=== PATIENT | male | born 1980 | race Caucasian/White ===

== ENCOUNTER 2017-12-31 17:09 | Inpatient (IN) ==
--- NOTE | 2017-12-31 17:30 | Emergency Department Note ---
Disposition Clinical Impression: Elevated transaminase level, Elevated troponin Pneumonia Qualifiers: Pneumonia type: due to unspecified organism Laterality: left Lung location: lower lobe of lung Qualified Code(s): J18.1 - Lobar pneumonia, unspecified organism Sepsis Qualifiers: Sepsis type: sepsis due to unspecified organism Qualified Code(s): A41.9 - Sepsis, unspecified organism Disposition: Admitted As Inpatient Condition: Good Time of Disposition: 20:56 General Adult HPI - General Chief complaint: ED General Medical Stated complaint: head, neck pain Time Seen by Provider: 12/31/17 17:16 Source: EMS Mode of arrival: EMS Limitations: no limitations Nursing Notes Reviewed: Yes Vital Signs Reviewed: Yes - History of Present Illness HPI Narrative: Male patient sitting complaints from complaining of a one-week history of myalgias as well as just not feeling well. States he has had a fever high temp of 103 at home. Has been treating it with Tylenol and Motrin. Developed a abscess to the right frontal aspect of his head that he thought was a pimple. Was seen at his physician's office after he got larger. Was placed on Bactrim as well as mupirocin ointment. Dates that they did not want to drain it secondary to scarring. At home he was able to get drainage out of it on Sunday. States that it did get larger at that time. Since then he has developed a cough. Congestion. Denies any chest pain. Reports pain in his right frontal area as well as the right occipital region of his head. Reports a cough that is productive. Denies any IV drug use. Denies any drug use at all. No urinary symptoms. Denies any nausea or vomiting. Does report that he just does not feel like he wants to eat. He reports he is otherwise healthy. Patient is tachycardic and tachypneic. Does have a cough whenever you ask him to take a deep breath. Is febrile while here. We will give patient a 30 kg fluid bolus start him on vancomycin as I believe that initially fever is due to the tissue infection to his right frontal aspect of his head. Patient does not appear meningitic. He does not have any photophobia or phonophobia. He is able to move his neck in all directions. Does report occipital pain but no midline tenderness. Pain Scale: 10 - Related Data Allergies Allergy/AdvReac Type Severity Reaction Status Date / Time No Known Allergies Allergy Verified 12/31/17 17:52 All systems ED: reviewed and negative except as stated. Review of Systems: As Per HPI Constitutional: Reports: fever, chills Cardiovascular: Denies: chest pain, palpitations, syncope Respiratory: Reports: cough, dyspnea, sputum production Gastrointestinal: Denies: abdominal pain, nausea, vomiting, diarrhea Genitourinary: Denies: urgency, dysuria, frequency Musculoskeletal: Reports: myalgia, other (Pain to the right occipital region. Not midline. No cervical spine tenderness.). Denies: back pain, neck pain Integumentary: Reports: lesions (2 frontal aspect of his head. Has been draining a purulent discharge.). Denies: rash Neurological: Reports: headache. Denies: weakness, numbness, paresthesias Past Medical History - Past Medical History Attestation: Yes The following information was validated with the patient. Source: patient Medical history: Reports: no medical history Psychiatric history: Reports: no psych history - Social History Smoking Status: Never smoker Alcohol use: Reports: none Drug use: Reports: none Physical Exam - General Limitations: no limitations General appearance: alert, in no apparent distress - Head Head exam: atraumatic, normocephalic, normal inspection, other (Small area around 2 mm and circular fashion to the right frontal aspect of his head with purulent discharge. Cleaned no culture was able to be obtained as it started bleeding and there is no more discharge.) - Eye Eye exam: Present: normal appearance, PERRL, EOMI. Absent: scleral icterus, conjunctival injection, periorbital tenderness - ENT ENT exam: normal exam, normal oropharynx, mucous membranes moist, TM's normal bilaterally - Neck Neck exam: Present: normal inspection, full ROM, trachea midline, other (Mildly erythematous and enlarged tonsils. No exudates.) - Chest Chest inspection: Present: normal inspection, symmetric chest wall rise - Respiratory Respiratory exam: Present: other (Decreased in the lower lobes.). Absent: respiratory distress, wheezes, accessory muscle use, prolonged expiratory phase - Cardiovascular Cardiovascular exam: Present: normal rhythm, tachycardia, normal heart sounds - Abdominal Exam Abdominal exam: Present: soft, Non-Tender. Absent: tenderness, distention, guarding, rebound, rigidity, Marion's sign, Rovsing's sign, tenderness at McBurney's Point - Extremities Exam Extremities exam: Present: normal inspection, full ROM, normal capillary refill. Absent: tenderness, pedal edema, calf tenderness - Back Exam Back exam: Absent: tenderness (No cervical spine or thoracic spine tenderness.) - Neurological Exam Neurological exam: Present: alert, oriented X3 - Psychiatric Psychiatric exam: Present: normal affect, normal mood - Skin Skin exam: Present: warm, dry, intact, normal color. Absent: rash, cyanosis Course Course Narrative: Patient well-appearing on exam. He does report myalgias everywhere. He is febrile. Responded well to fluid bolus. Lactic acid is normal. We did place patient on vancomycin his initial presentation was concerning for his tissue infection to cause possible sepsis. However after checks x-ray was obtained he does have a pneumonia. We will add Zosyn on at this time. Patient's lung exam was inhibited by patient significant amount of coughing. If you asked to take a deep breath he did begin to cough. Abdomen is soft and nontender. No organomegaly on exam. No pain to palpation of his abdomen. No nausea or vomiting. Does have elevated liver enzymes. Again reports no medical history. We will add a hepatitis panel. Patient also reports no drug use. There is no murmurs on exam. No swelling or edema to his extremities. We will admit patient to the hospital for possible sepsis. Vital Signs Temperature 101.1 F H 12/31/17 17:13 Pulse Rate 108 12/31/17 17:13 Respiratory Rate 20 12/31/17 17:13 Blood Pressure 142/92 12/31/17 17:13 O2 Sat by Pulse Oximetry 97 12/31/17 17:13 Temperature 99.6 F 12/31/17 20:26 Pulse Rate 91 12/31/17 20:26 Respiratory Rate 20 12/31/17 17:13 Blood Pressure 126/84 12/31/17 20:26 O2 Sat by Pulse Oximetry 95 12/31/17 20:26 Oxygen Delivery Oxygen Delivery Room Air Medical Decision Making - Medical Records Medical records reviewed: Yes I reviewed the patient's medical records. - Lab Data Lab results reviewed: Yes I reviewed the patient's lab results. Result diagrams: 12/31/17 18:09 12/31/17 18:09 Lab Results 12/31/17 12/31/17 12/31/17 Range/Units 17:49 18:09 18:09 WBC 10.0 (4.3-11.1) K/mcL RBC 5.07 (4.19-5.50) M/mcL Hgb 15.2 (12.9-16.9) g/dL Hct 42.8 (37.5-50.1) % MCV 84.4 (83.0-100.0) fL MCH 30.0 (28.0-33.3) pg MCHC 35.5 (31.6-35.5) g/dL RDW 12.6 (11.5-14.5) % Plt Count 168 (140-400) K/mcL MPV 9.2 L (9.4-12.4) fL Immature Gran % 0.2 (0-4) % Seg Neutrophils % 83.3 % Lymphocytes % 5.2 % Monocytes % 10.2 % Eosinophils % 0.9 % Basophils % 0.2 % Neutrophils # 8.3 (1.6-8.9) K/mcL Lymphocytes # 0.5 L (0.6-4.6) K/mcL Monocytes # 1.0 (0.0-1.3) K/mcL Eosinophils # 0.1 (0.0-0.6) K/mcL Basophils # 0.0 (0.0-0.2) K/mcL PT 15.9 H (9.4-12.1) Seconds INR 1.4 APTT 33.7 (26.0-36.0) Seconds Sodium (136-145) mEq/L Potassium (3.5-5.1) mEq/L Chloride (98-107) mEq/L Carbon Dioxide (23-29) mEq/L BUN (6-20) mg/dL Creatinine (0.70-1.30) mg/dL Est GFR ( Amer) (> 60) Est GFR (Non-Af Amer) (> 60) BUN/Creatinine Ratio (6-26) Glucose (70-105) mg/dL Calculated Osmolality (280-300) Lactic Acid (0.5-2.2) mmol/L Calcium (8.6-10.3) mg/dL Phosphorus (2.7-4.5) mg/dL Magnesium (1.6-2.6) mg/dL Total Bilirubin (0.3-1.0) mg/dL Direct Bilirubin (0.0-0.2) mg/dL Indirect Bilirubin (0.0-1.2) mg/dL AST (13-39) Units/L ALT (7-52) Units/L Alkaline Phosphatase (34-104) Units/L Creatine Kinase (30-223) Units/L Troponin I (< 0.04) ng/mL Serum Total Protein (6.4-8.9) g/dL Albumin (3.5-5.7) g/dL Globulin (2.4-3.5) g/dL Albumin/Globulin Ratio (1.1-2.2) Urine Color Dark Yellow (Yellow) Urine Clarity Clear (Clear) Urine pH 6.0 (5.0-8.0) pH Units Ur Specific [place] 1.021 (1.010-1.025) Urine Protein 100 H (Neg-Trace) mg/dL Urine Glucose (UA) Normal (Normal) mg/dL Urine Ketones 40 H (Negative) mg/dL Urine Blood Negative (Negative) Urine Nitrite Negative (Negative) Urine Bilirubin Moderate H (Negative) Urine Urobilinogen Normal (Normal) mg/dL Ur Leukocyte Esterase Trace H (Negative) Urine Microscopic RBC 0-3 (0-3) per hpf Urine Microscopic WBC 3-5 H (0-3) per hpf Ur Squamous Epith Cells Moderate H (None-Few) per lpf Urine Bacteria None Seen (None-Few) per hpf Hyaline Casts None Seen (None-Few) per lpf Ur Culture Indicated? YES A (NO) 12/31/17 12/31/17 Range/Units 18:09 18:09 WBC (4.3-11.1) K/mcL RBC (4.19-5.50) M/mcL Hgb (12.9-16.9) g/dL Hct (37.5-50.1) % MCV (83.0-100.0) fL MCH (28.0-33.3) pg MCHC (31.6-35.5) g/dL RDW (11.5-14.5) % Plt Count (140-400) K/mcL MPV (9.4-12.4) fL Immature Gran % (0-4) % Seg Neutrophils % % Lymphocytes % % Monocytes % % Eosinophils % % Basophils % % Neutrophils # (1.6-8.9) K/mcL Lymphocytes # (0.6-4.6) K/mcL Monocytes # (0.0-1.3) K/mcL Eosinophils # (0.0-0.6) K/mcL Basophils # (0.0-0.2) K/mcL PT (9.4-12.1) Seconds INR APTT (26.0-36.0) Seconds Sodium 135 L (136-145) mEq/L Potassium 3.9 (3.5-5.1) mEq/L Chloride 103 (98-107) mEq/L Carbon Dioxide 19 L (23-29) mEq/L BUN 9 (6-20) mg/dL Creatinine 1.10 (0.70-1.30) mg/dL Est GFR ( Amer) > 60 (> 60) Est GFR (Non-Af Amer) > 60 (> 60) BUN/Creatinine Ratio 8 (6-26) Glucose 118 H (70-105) mg/dL Calculated Osmolality 280 (280-300) Lactic Acid 0.7 (0.5-2.2) mmol/L Calcium 8.7 (8.6-10.3) mg/dL Phosphorus 2.0 L (2.7-4.5) mg/dL Magnesium 1.7 (1.6-2.6) mg/dL Total Bilirubin 1.7 H (0.3-1.0) mg/dL Direct Bilirubin 0.8 H (0.0-0.2) mg/dL Indirect Bilirubin 0.9 (0.0-1.2) mg/dL AST 101 H (13-39) Units/L ALT 124 H (7-52) Units/L Alkaline Phosphatase 140 H (34-104) Units/L Creatine Kinase 51 (30-223) Units/L Troponin I 0.04 H* (< 0.04) ng/mL Serum Total Protein 7.1 (6.4-8.9) g/dL Albumin 4.1 (3.5-5.7) g/dL Globulin 3.0 (2.4-3.5) g/dL Albumin/Globulin Ratio 1.4 (1.1-2.2) Urine Color (Yellow) Urine Clarity (Clear) Urine pH (5.0-8.0) pH Units Ur Specific [place] (1.010-1.025) Urine Protein (Neg-Trace) mg/dL Urine Glucose (UA) (Normal) mg/dL Urine Ketones (Negative) mg/dL Urine Blood (Negative) Urine Nitrite (Negative) Urine Bilirubin (Negative) Urine Urobilinogen (Normal) mg/dL Ur Leukocyte Esterase (Negative) Urine Microscopic RBC (0-3) per hpf Urine Microscopic WBC (0-3) per hpf Ur Squamous Epith Cells (None-Few) per lpf Urine Bacteria (None-Few) per hpf Hyaline Casts (None-Few) per lpf Ur Culture Indicated? (NO) - Radiology Data Radiology results reviewed: Yes I reviewed the patient's radiology results. Chest X-Ray 12/31/17 17:31 IMPRESSION: Possible left lower lobe pneumonia D/ / Giovanny Yeboah MD / Giovanny Yeboah MD Interpreting Provider: Giovanny Yeboah MD - EKG Data EKG #1 EKG attestation: Yes I reviewed and interpreted this EKG. EKG results narrative: Sinus tachycardia at a rate of 105. OH interval is 123. Castration is 91. QTC is 411. QT is 311. No signs of acute ischemia. No previous EKG to compare to. Patient does have T-wave inversions in lead 3. Attestation Statement - Attestation Attestation: I examined this patient and my medical decision-making was reviewed with the Resident Physician, Dr. Mitchell. I agree with the documented findings, disposition and treatment plan as described except to the extent set forth below. Patient is a 37-year-old white male who presents the emergency department complaints of a one-week history of myalgias "not feeling well. Patient states he developed a temperature with a MAXIMUM TEMPERATURE of 103 and developed a pimple that progressed to a small 1 cm abscess on his forehead. Patient was seen for this and started on Bactrim and mupirocin that he has been taking as directed and was able to express some very limited serial from the area on Sunday. He does not feel this is getting worse but has not been feeling well having decreased appetite associated with congestion and cough. She is otherwise healthy denies any other medical history. I agree with patient's physical exam findings as documented. On arrival he is febrile and tachycardic meetings Sirs criteria. Patient was placed on a monitor and IV is established given fluid boluses labs including lactate were obtained as well as chest x-ray and cultures. An. Antibiotics were initiated. Patient's lactate is within normal limits, but he does have an elevated troponin as well as elevated bilirubin and liver transaminases. Patient has denied any abdominal pain or chest pain. Patient's chest x-ray is consistent with a left lower lobe infiltrate for which we started IV antibiotics. Patient denies any history of IV drug abuse but does have numerous tattoos. Patient's troponin also came back elevated EKG shows a sinus tachycardia without acute ischemia. Concerning for possible endocarditis. We did add antibiotic coverage for this and additional blood cultures. Patient has been hemodynamically stable throughout his ED course we will admit him to the hospitalist service discussed with hospitalist who accepted patient for admission.
[2017-12-31] MEDS ORDERED: 0.9 % Sodium Chloride 500 ML IVC ONE (17:34)
[2017-12-31 17:57] LABS: Bilirubin,Urine Moderate (Negative); Blood,Urine Negative (Negative); Clarity,Urine Clear (Clear); Color,Urine Dark Yellow (Yellow); Glucose,Urine (UA) Normal (Normal); Ketones,Urine 40 mg/dL (Negative); Leukocyte Esterase,Urine Trace (Negative); Nitrite,Urine Negative (Negative); Protein,Urine 100 mg/dL (Neg-Trace); Specific Gravity,Urine 1.021 (1.010-1.025); Urobilinogen,Urine Normal (Normal)
[2017-12-31 18:00] LABS: Bacteria,Urine None Seen per hpf (None-Few); Hyaline Casts,Urine None Seen per lpf (None-Few); RBC,Urine 0-3 per hpf (0-3); Squamous Epithelial Cell,Urine Moderate per lpf (None-Few)
[2017-12-31] MEDS: 0.9 % Sodium Chloride 1,000 ML IVC SCH ×2 (18:15→20:25)
[2017-12-31 18:25] LABS: Basophils % 0.2 %; Eosinophils # 0.1 K/mcL (0.0-0.6); Eosinophils % 0.9 %; Hematocrit 42.8 % (37.5-50.1); Hemoglobin 15.2 g/dL (12.9-16.9); Immature Granulocytes % 0.2 % (0-4); Lymphocytes # 0.5 K/mcL (0.6-4.6); Lymphocytes % 5.2 %; Mean Corpuscular HGB Conc 35.5 g/dL (31.6-35.5); Mean Corpuscular Volume 84.4 fL (83.0-100.0); Mean Platelet Volume 9.2 fL (9.4-12.4); Monocytes % 10.2 %; Neutrophils # 8.3 K/mcL (1.6-8.9); Platelet Count 168 K/mcL (140-400); Red Blood Count 5.07 M/mcL (4.19-5.50); Red Cell Distribution Width 12.6 % (11.5-14.5); Segmented Neutrophils % 83.3 %
[2017-12-31 18:29] LABS: INR 1.4; Prothrombin Time 15.9 Seconds (9.4-12.1)
[2017-12-31 18:32] LABS: Activated Partial Thrombo Time 33.7 Seconds (26.0-36.0)
[2017-12-31 18:47] LABS: Alanine Aminotransferase 124 Units/L (7-52); Albumin 4.1 g/dL (3.5-5.7); Albumin/Globulin Ratio 1.4 (1.1-2.2); Alkaline Phosphatase 140 Units/L (34-104); Aspartate Amino Transferase 101 Units/L (13-39); BUN/Creatinine Ratio 8 (6-26); Bilirubin,Direct 0.8 mg/dL (0.0-0.2); Bilirubin,Indirect 0.9 mg/dL (0.0-1.2); Bilirubin,Total 1.7 mg/dL (0.3-1.0); Blood Urea Nitrogen 9 mg/dL (6-20); Calcium 8.7 mg/dL (8.6-10.3); Carbon Dioxide 19 mEq/L (23-29); Chloride 103 mEq/L (98-107); Glucose 118 mg/dL (70-105); Magnesium 1.7 mg/dL (1.6-2.6); Osmolality,Calculated 280 (280-300); Potassium 3.9 mEq/L (3.5-5.1); Sodium 135 mEq/L (136-145); Total Protein 7.1 g/dL (6.4-8.9); eGFR For Non-African Americans > 60 (> 60)
[2017-12-31 19:01] LABS: Troponin I 0.04 ng/mL (< 0.04)
[2017-12-31 20:08] LABS: Creatine Kinase 51 Units/L (30-223)
[2017-12-31] MEDS ORDERED: Piperacillin/Tazobactam 3.375 GM in 0.9 % Sodium Chloride Mini Bag 100 ML IVPB ONE (20:30)
[2017-12-31] MEDS ORDERED: Acetaminophen 325 MG TABLET PO PRN (21:32)
[2017-12-31] MEDS ORDERED: Naloxone 0.4 MG/ML INJ IVP PRN (21:32)
--- NOTE | 2017-12-31 21:54 | Internal Med History&Physical ---
<Amanda Bell - Last Filed: 12/31/17 23:53> Date of Encounter: 12/31/17 Time of Encounter: 21:38 Internal Medicine - H&P: HPI Chief complaint: fever & malaise Admitted From: Home Plans for Post Hospital Care: Home History of present illness: Mr. Lovelace is a 37 year old male presents to ED with 3 days of malaise, fever and head pain. One week ago noticed abscess on his forehead and it grew until pain caused him to go to Urgent Care on Sunday and was prescribed Bactrim. When he awoke on Sunday - abscess was larger so he picked at it. On same day , he started having neck pain and face swelled - " looked like a boxer". He had tender mass behind right ear and below jaw that has resolved. He felt like he could not completely stretch his neck or legs. Today, he had headache with photophobia improved with Tylenol . He reports shortness of breath and chest congestion with nonproductive cough. He has campy abdominal pain only occurs when he lays flat described similar to hunger . He has decrease appetite - denies nausea, vomiting or diarrhea. In ED, mild tachycardia at 108 and febrile 101.1 - given Tylenol and IVF. His chest x-ray showed possible left lower lobe infiltrate -started on van and zosyn for PNA. Lipase elevated at 562. He has no past medical history as an adult - but had meningitis as infant. He denies use of tobacco, EtOH, and illicit substances. He has had no recent travel , sick contacts, or odd foods. Past Med Surg Social Fam HX - Past Medical History Medical history: no medical history Psychiatric history: no psych history - Past Surgical History Additional surgical history: Skin graphs - Social History Smoking Status: Never smoker Alcohol use: none Drug use: none Internal Medicine - H&P: Meds 3 Allergy/AdvReac Type Severity Reaction Status Date / Time No Known Allergies Allergy Verified 12/31/17 17:52 All Systems PM: A 10-system review of systems was performed and is negative for pertinent findings except as documented above in the HPI. - Constitutional Constitutional: fatigue, fever(s), malaise - EENT Eyes: photophobia, no blurry vision, no change in vision Ears: no decreased hearing, no ear discharge Nose, mouth and throat: dry mouth, facial pain - Cardiovascular Cardiovascular ROS IM: no chest pain, no palpitations - Respiratory Respiratory: cough, dyspnea on exertion, chest congestion, no wheezing - Gastrointestinal Gastrointestinal: abdominal pain, no constipation, no diarrhea, no nausea, no vomiting - Genitourinary Genitourinary ROS male: no dysuria, no urinary incontinence, no urinary urgency - Musculoskeletal Musculoskeletal ROS IM: myalgias, neck pain, stiffness - Neurological Neurological ROS: headache(s), no behavioral changes, no confusion - Constitutional Vitals: Temp Pulse Resp BP Pulse Ox 99.6 F 91 20 126/84 95 12/31/17 20:26 12/31/17 20:26 12/31/17 17:13 12/31/17 20:26 12/31/17 20:26 General appearance: Present: cooperative, mild distress, A&O X 3, answers questions appropriately Exam: laying comfortable in bed - Head Head exam: Present: normocephalic. Absent: atraumatic Additional comments: ruptured abscess about 5 cm in diameter - Eye Eye exam: Present: EOMI, normal appearance. Absent: periorbital swelling, periorbital tenderness Pupils: Present: normal accommodation, PERRL - Respiratory Respiratory exam: Present: rales. Absent: respiratory distress, rhonchi, wheezes, tachypnea Additional comments: in lower lobes - Cardiovascular Cardiovascular exam: Present: RRR. Absent: gallop, rubs - GI/Abdominal GI/Abdominal exam: Present: hyperactive bowel sounds. Absent: mass, rebound, splenomegaly, tenderness - Extremities Exam Extremities exam: Present: full ROM, radial pulses palpable and symmetrical. Absent: pedal edema, tenderness - Back Exam Back exam: Present: full ROM, paraspinal tenderness, tenderness Additional comments: cervical spine was tender and tight - Neurological Exam Neurological exam: Present: altered, CN II-XII intact, motor sensory deficit, oriented X3, no focal deficits, strengths equal and symetr throughout. Absent: facial droop, speech deficit - Skin Skin exam: Present: diaphoretic, warm. Absent: excoriation, rash Additional comments: large number of tattoos all over body Internal Med - H&P Results - Labs CBC & Chem 7: 12/31/17 18:09 12/31/17 18:09 - Assessment and plan (1) Pancreatitis Current Visit: Yes Status: Suspected Assessment and plan: Non specific symptoms with Lipase 562 and elevated AST & ALTs - continue IVF to 2L - CT abdomen Qualifiers: Pancreatitis type: unspecified pancreatitis type Acute pancreatitis complication: unspecified Qualified Code(s): K85.90 - Acute pancreatitis without necrosis or infection, unspecified (2) Pneumonia Current Visit: Yes Status: Suspected Assessment and plan: Unlikely with lack of productive cough and unconvincing radiograph findings - stop vanc/ zosyn Qualifiers: Pneumonia type: due to unspecified organism Laterality: left Lung location: lower lobe of lung Qualified Code(s): J18.1 - Lobar pneumonia, unspecified organism (3) Sepsis Current Visit: Yes Status: Suspected Assessment and plan: Meets SIRs criteria with mild tachycardia 108 and fever 101.1 - but unclear source - superficial face abscess is possible but unlikely source Qualifiers: Sepsis type: sepsis due to unspecified organism Qualified Code(s): A41.9 - Sepsis, unspecified organism (4) Elevated troponin Current Visit: Yes Status: Suspected Assessment and plan: troponin 0.04 with out history concerning for ACS - trend troponin q 6hr - echo to rule out viral endocarditis (5) DVT prophylaxis Current Visit: Yes Status: Acute Assessment and plan: heparin sq - Time Spent With Patient Total time spent is greater than 50% in coordination of care (as documented) at patient's floor/unit and/or counseling patient: Greater than 35 minutes <Emilia Brizuela - Last Filed: 01/01/18 00:05> Date of Encounter: 01/01/18 Internal Medicine - H&P: HPI History of present illness: Mr. Lovelace is a 37 year old male All Systems PM: A 10-system review of systems was performed and is negative for pertinent findings except as documented above in the HPI. - Constitutional Vitals: Temp Pulse Resp BP Pulse Ox 99.3 F 100 14 116/76 98 12/31/17 23:45 12/31/17 23:45 12/31/17 23:45 12/31/17 23:45 12/31/17 23:45 Internal Med - H&P Results - Labs CBC & Chem 7: 12/31/17 18:09 12/31/17 18:09 - Time Spent With Patient Total time spent is greater than 50% in coordination of care (as documented) at patient's floor/unit and/or counseling patient: - Attending Attestation Patient seen and examined by me on 12/31/17 2200hrs. 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 He then developed now more recently some cramping mid-abdominal discomfort and some shortness of breath without productive cough or pleuritic pain. He also complains of diffuse aches in his legs. On arrival to our ER an I&D was done on the small abscess on his forehead. He was also febrile to 101.1F with mild tachycardia at 108. Labs were remarkable for a positive troponin and elevated lipase. Of note the patient states that he does not drink alcohol and does not smoke. HE denies chest pain but does feel his abdominal pain was worse when laying supine. On my assessment he was comfortable in bed in no acute distress and without complaints. Physical exam remarkable for a well-developed fellow with multiple tattoos, non-tender abdomen, no murmurs or rubs on cardiac auscultation and no wheezes, rales or rhonchi. No meningismus or photophobia. His CXR was independently reviewed by me and I do not see any focal consolidation to suggest pneumonia that would warrant systemic antibiotics. We will observe him overnight given the abnormal lab findings to which there is no specific cause we can pinpoint at this time. I am concerned about a viral syndrome which could perhaps cause a pericarditis state hence the positive troponin and upper abdominal discomfort that is relieved with supine positioning. For now we will place on fluids, cultures have been obtained, repeat troponin and lipase level in the morning, get imaging of his abdomen and check an echo to check for pericardial fluid.
[2017-12-31 22:52] LABS: Amphetamine Screen,Urine Negative ng/mL (Cutoff=1000); Barbiturate Screen,Urine Negative ng/mL (Cutoff=200); Benzodiazepines Screen,Urine Negative ng/mL (Cutoff=200); Cannabinoid Screen,Urine Negative ng/mL (Cutoff = 50); Cocaine Screen,Urine Negative ng/mL (Cutoff= 300); Opiate Screen,Urine Negative ng/mL (Cutoff=300); Phencyclidine Screen,Urine Negative ng/mL (Cutoff=25)
[2017-12-31] MEDS: Ringers Solution, Lactated 2,000 ML IVC SCH (23:44)
[2017-12-31] MEDS ORDERED: Albuterol 2.5 MG/3 ML NEBULIZER IH PRN (23:46)
[2017-12-31] MEDS ORDERED: Benzonatate 100 MG CAPSULE PO PRN (23:47)
[2018-01-01 02:10] LABS: Basophils % 0.2 %; Eosinophils # 0.1 K/mcL (0.0-0.6); Eosinophils % 1.3 %; Hemoglobin 13.6 g/dL (12.9-16.9); Immature Granulocytes % 0.2 % (0-4); Lymphocytes # 0.6 K/mcL (0.6-4.6); Lymphocytes % 6.5 %; Mean Corpuscular HGB Conc 34.9 g/dL (31.6-35.5); Mean Corpuscular Hemoglobin 29.8 pg (28.0-33.3); Mean Corpuscular Volume 85.3 fL (83.0-100.0); Mean Platelet Volume 10.5 fL (9.4-12.4); Monocytes # 0.8 K/mcL (0.0-1.3); Monocytes % 9.2 %; Neutrophils # 7.4 K/mcL (1.6-8.9); Platelet Count 139 K/mcL (140-400); Red Blood Count 4.57 M/mcL (4.19-5.50); Red Cell Distribution Width 12.8 % (11.5-14.5); Segmented Neutrophils % 82.6 %
[2018-01-01] MEDS: *HR* Heparin 5,000 UNIT/ML VIAL SQ SCH ×3 (04:56→21:40)
[2018-01-01] MEDS ORDERED: Ketorolac 30 MG/ML VIAL IVP ONE (05:06)
--- NOTE | 2018-01-01 05:14 | Event Note ---
Date of Encounter: 01/01/18 Time of Encounter: 05:10 The patient is seen to have a febrile recurrence with complaints of diffuse body aches and headache. He also says he has some congestion in his throat. His physical exam remains unremarkable however and there are no localizing symptoms. Will obtain another set of blood cultures x 2 sets, lactate level, repeat troponin, EKG and lipase (elevated but does not have abdominal findings) . TTE and CT already ordered. His symptoms and plethora of abnormal lab findings do not constitute one specific syndrome as of yet. Will start empiric antimicrobials: vancomycin and cefepime. Symptomatic relief of his congestion with nebulizer therapy. TTE ordered and cardiology evaluation can be sought subsequently. If he has ongoing headache and fever, a consult to neurology or IR should be requested for a lumbar puncture.
[2018-01-01] MEDS ORDERED: Acetaminophen 325 MG TABLET PO PRN (06:03)
[2018-01-01] MEDS ORDERED: *HR* HYDROcodone/Acet 5/325 mg TABLET PO PRN (06:03)
[2018-01-01] MEDS ORDERED: traMADol 50 MG TABLET PO PRN (06:03)
[2018-01-01] MEDS ORDERED: *HR* OxyCODONE Immed Rel 5 MG TABLET PO PRN (06:03)
[2018-01-01] MEDS: Cefepime HCl 2,000 MG in Water for inj. (sterile) 20 ML 20 ML IVPB SCH ×2 (06:13→17:51)
[2018-01-01] MEDS: Ringers Solution, Lactated 2,000 ML IVC SCH ×2 (06:28→13:50)
[2018-01-01 06:46] LABS: Alanine Aminotransferase 89 Units/L (7-52); Albumin 3.5 g/dL (3.5-5.7); Albumin/Globulin Ratio 1.3 (1.1-2.2); Alkaline Phosphatase 131 Units/L (34-104); Aspartate Amino Transferase 60 Units/L (13-39); BUN/Creatinine Ratio 8 (6-26); Bilirubin,Total 2.7 mg/dL (0.3-1.0); Blood Urea Nitrogen 8 mg/dL (6-20); Calcium 8.1 mg/dL (8.6-10.3); Carbon Dioxide 20 mEq/L (23-29); Chloride 106 mEq/L (98-107); Globulin 2.6 g/dL (2.4-3.5); Glucose 140 mg/dL (70-105); Osmolality,Calculated 279 (280-300); Sodium 134 mEq/L (136-145); Total Protein 6.1 g/dL (6.4-8.9); eGFR For Non-African Americans > 60 (> 60)
[2018-01-01 06:57] LABS: Troponin I 0.07 ng/mL (< 0.04)
[2018-01-01] MEDS: Ipratropium/Albuterol Neb 3 ML IH SCH ×4 (07:58→22:16)
[2018-01-01] MEDS: Aspirin 81 MG TAB.CHEW PO SCH (08:05)
[2018-01-01 12:55] LABS: Chol/HDL Ratio 3.3 (0-4.9); Cholesterol 101 mg/dL (< 200); HDL Cholesterol 31 mg/dL (40-59); LDL Cholesterol,Calculated 51 mg/dL (0-99); Triglycerides 94 mg/dL (< 150)
[2018-01-01] MEDS ORDERED: Naloxone 0.4 MG/ML INJ IVP PRN (14:03)
--- NOTE | 2018-01-01 14:28 | Internal Med Progress Note ---
Hospitalist Progress Note - Encounter Date of Encounter: 01/01/18 Time of Encounter: 09:40 - Subjective Interval History: awake. family present Continued fever and chills. No associated nausea, vomiting. He denies abd pain, back pain. + chest heaviness and sob and coughing with deep inspiration. He denies headache, eye pain, neck pain. Swelling of forehead and face is resolved s/p I&D of forehead abscess. He again denies any etoh use, any drug use, and denies family hx of cardiac disease. He has no history of high triglycerides or blood clots. He notes in 1999 he had episode of pancreatitis with unknown etiology - Exam Vitals: Temp Pulse Resp BP Pulse Ox 98.4 F 93 14 129/83 97 01/01/18 13:50 01/01/18 13:50 01/01/18 13:50 01/01/18 13:50 01/01/18 13:50 Exam: General: awake, alert, appears stated age HEENT:EOM, pupils equal, round, moist mucus membranes, clear oropharynx Neck: supple, trachea midline Cardiovascular:regular rate and rhythm, normal S1 & S2, no rubs, murmurs or gallops. No JVD. radial pulses 2+, no lower extremity edema Lungs:Normal breath sounds, no wheezes, or crackles. Normal respiratory effort on room air Abdomen:Soft, non-tender, non-distended, no rigidity, + bowel sounds Neurological: AAOx3, CN grossly intact Skin:Normal color, no rash, no pallor, no jaundice, center forehead abscess open without drainage/bleeding and no surrounding erythema or edema - Assessment and Plan (1) Abscess of forehead Current Visit: Yes Status: Acute Assessment and Plan: Improved edema and erythema -s/p I& D in ED -cont broad empiric abx for sepsis as below, abscess on head does not appear to be significant enough to cause sepsis, and he has no meningitic symptoms at this time to suggest spread of infection (2) Elevated troponin Current Visit: Yes Status: Suspected Assessment and Plan: Rule out ACS, may be type 2 in setting of sepsis Currently with intermittent chest pressure and sensation of sob/cough with deep inspiration No recent immobilization, travel or clot hx to suggest PE, no hypoxia -CXR with possible LLL infiltrate, though he has no sxs of pna -repeat EKG today -trops up trending, cont to trend -echo pending to rule out endocarditis, see bleow -cards consulted and case discussed, will fu recs (3) Pancreatitis Current Visit: Yes Status: Suspected Assessment and Plan: As indicated by lipase elevation to now 800s History of prior episode 1999 without etiology identified -CT a/p limited by lack of contrast, pancreas appears normal, small amount of abd ascites adjacent to spleen -s/p fluid boluses, cont high rate IVFs -npo -GI consulted, case discussed and will fu recs -lipid panel without tg elevation, denies etoh use, has gallbladder and given elevated alk phos and t bili, may have stone -he is currently asx (4) Transaminitis Current Visit: Yes Status: Acute Assessment and Plan: Alk phos 140, ALT 124, AST 101 Now beginning to down trend -liver on cT appears normal -GI consulted as above -cont to monitor (5) Sepsis Current Visit: Yes Status: Suspected Assessment and Plan: As evidenced by Fever 102.6, HR 108, Suspected infection, source currently not yet identified -in setting of pancreatitis, trop elevation/ruling out endocarditis, abscess forehead s/p i&D, possible pna on CXR -broad spectrum abx vanc + cefepime -s/p fluid boluses and IVFs maintenance currently with stable BPs -bl cxs pending -no UTI sxs reported -CXR with ? LL pna and CT a/p with possible bl opacities--however at this time pna less likely given he has no sxs whatsoever of pna -cont to monitor closely -check echo to rule out endocarditis given associated cardiac findings (6) Thrombocytopenia Current Visit: Yes Status: Acute Assessment and Plan: Plt decreased since admit, though all 3 cell liines have decreased with aggressive iVFs -cont to monitor, no active bleeding DVT Prophylaxis: heparin sq, but refusing, scds ordered - Time Spent with Patient Total time spent is greater than 50% in coordination of care (as documented) at patient's floor/unit and/or counseling patient: Greater than 35 minutes Plan of Care Discussed with: patient Internal Medicine: Result - Labs CBC & Chem 7: 01/01/18 00:48 01/01/18 06:01 - ABG Interpretation ABG results: PT/INR, D-dimer PT 15.9 Seconds (9.4-12.1) H 12/31/17 18:09 Consult Discharge Plan - Plan Referrals: NONE,PCP [Primary Care Provider] - (3) Pancreatitis Qualifiers: Pancreatitis type: unspecified pancreatitis type Acute pancreatitis complication: unspecified Qualified Code(s): K85.90 - Acute pancreatitis without necrosis or infection, unspecified (5) Sepsis Qualifiers: Sepsis type: sepsis due to unspecified organism Qualified Code(s): A41.9 - Sepsis, unspecified organism
--- NOTE | 2018-01-01 14:55 | Gastroenterology Consult Note ---
<Rashid Cotter - Last Filed: 01/01/18 17:21> Date of Encounter: 01/01/18 Time of Encounter: 14:54 - Assessment and plan (1) Pancreatitis Current Visit: Yes Status: Suspected Assessment and plan: Presented with abdominal pain; one prior episode of pancreatitis in early - Distant history of alcohol abuse; denies current use - Unknown cause at this time; possibly secondary to gallstone - AST: 101, 60 - ALT: 124, 89 - Alkaline phosphatase: 140, 131 - Lipase: 562, 828 Plan: - NPO; MRCP planned for tomorrow - Ultram, oxycodone for pain control Qualifiers: Pancreatitis type: unspecified pancreatitis type Acute pancreatitis complication: unspecified Qualified Code(s): K85.90 - Acute pancreatitis without necrosis or infection, unspecified (3) Sepsis Current Visit: Yes Status: Suspected Assessment and plan: Patient presented with tachycardia, fever - Unknown infectious source at this time; possibly facial abscess - Patient is currently on IV Vanco and cefepime Qualifiers: Sepsis type: sepsis due to unspecified organism Qualified Code(s): A41.9 - Sepsis, unspecified organism - Time Spent With Patient Total time spent is greater than 50% in coordination of care (as documented) at patient's floor/unit and/or counseling patient: GI History of Present Illness - Data of Consult Requesting Physician: Stella Mujica - Consult Narrative Reason for consult: Pancreatitis History of present illness: Mr. Lovelace is a 37 year old male who presented to [facility] ED with a chief complaint of malaise, fever, and head pain of 3 days duration. Patient reported that approximately one week ago, he noticed an abscess on his forehead which grew until the pain caused him to present to the urgent care facility. At this time , he was prescribed Bactrim. He developed increasing neck and facial swelling. He also complained of cramp abdominal pain which occurred when he would lay flat. He also reported a decrease in his appetite. He denied having any nausea , vomiting, or diarrhea. Upon presentation, patient was tachycardic at 108 bpm and febrile at 101.1. He was given acetaminophen and IV fluids. Chest x-ray showed possible left lower lobe infiltrate, and he was started on vancomycin and Zosyn. His lipase was elevated at 562. Patient seen and examined at bedside; denies any abdominal pain at this time. States his pain is only present while lying flat. Denies fevers, chills, nausea, and vomiting. No further complaints. Past Med Surg Social Fam HX - Past Medical History Medical history: no medical history Psychiatric history: no psych history - Past Surgical History Additional surgical history: Skin graphs - Social History Smoking Status: Never smoker Smokeless Tobacco Status: No Alcohol use: none Drug use: none - Constitutional Vitals: Temp Pulse Resp BP Pulse Ox 98.4 F 93 14 129/83 97 01/01/18 13:50 01/01/18 13:50 01/01/18 13:50 01/01/18 13:50 01/01/18 13:50 - Other Additional findings: General: No acute distress Neck: Supple, trachea midline Cardiovascular: RRR, normal S1 & S2, no rubs, murmurs or gallops Lungs: CTAB Abdomen: Pain when lying down; non reproducible with palpation Skin: Normal color Results - Labs CBC & Chem 7: 01/01/18 00:48 01/01/18 06:01 Labs: Last Result Calcium 8.1 mg/dL (8.6-10.3) L 01/01/18 06:01 Troponin I 0.07 ng/mL (< 0.04) H* 01/01/18 06:01 Triglycerides 94 mg/dL (< 150) 01/01/18 06:01 Urine Opiates Screen Negative ng/mL (Pihyrf=732) 12/31/17 17:49 Entire Visit Hgb 13.6 g/dL (12.9-16.9) D 01/01/18 00:48 Hct 39.0 % (37.5-50.1) 01/01/18 00:48 PT 15.9 Seconds (9.4-12.1) H 12/31/17 18:09 Total Bilirubin 2.7 mg/dL (0.3-1.0) H 01/01/18 06:01 AST 60 Units/L (13-39) H 01/01/18 06:01 ALT 89 Units/L (7-52) H 01/01/18 06:01 Lipase 828 Units/L (11-82) H 01/01/18 06:01 - ABG ABG results: PT/INR, D-dimer PT 15.9 Seconds (9.4-12.1) H 12/31/17 18:09 Consult Discharge Plan - Plan Referrals: NONE,PCP [Primary Care Provider] - <Sofia Morton - Last Filed: 01/03/18 16:42> Date of Encounter: 01/01/18 - Time Spent With Patient Total time spent is greater than 50% in coordination of care (as documented) at patient's floor/unit and/or counseling patient: GI History of Present Illness - Data of Consult Requesting Physician: Stella Mujica - Consult Narrative History of present illness: Mr. Lovelace is a 37 year old male - Constitutional Vitals: Temp Pulse Resp BP Pulse Ox 97.9 F 90 15 131/88 97 01/03/18 10:34 01/03/18 10:34 01/03/18 15:31 01/03/18 10:34 01/03/18 15:31 Results - Labs CBC & Chem 7: 01/03/18 06:49 01/03/18 06:49 Labs: Last Result Calcium 8.5 mg/dL (8.6-10.3) L 01/03/18 06:49 Troponin I 0.07 ng/mL (< 0.04) H* 01/02/18 14:55 Triglycerides 94 mg/dL (< 150) 01/01/18 06:01 Urine Opiates Screen Negative ng/mL (Bodyuh=567) 12/31/17 17:49 Entire Visit Hgb 12.5 g/dL (12.9-16.9) L 01/03/18 06:49 Hct 36.3 % (37.5-50.1) L 01/03/18 06:49 PT 15.9 Seconds (9.4-12.1) H 12/31/17 18:09 Total Bilirubin 3.4 mg/dL (0.3-1.0) H 01/03/18 06:49 AST 39 Units/L (13-39) 01/03/18 06:49 ALT 63 Units/L (7-52) H 01/03/18 06:49 Lipase 579 Units/L (11-82) H 01/03/18 06:49 - ABG ABG results: PT/INR, D-dimer PT 15.9 Seconds (9.4-12.1) H 12/31/17 18:09 - Attending Attestation I examined this patient and my medical decision-making was reviewed with the Resident Physician. I agree with the documented findings, disposition and treatment plan as described except to the extent set forth below. Patient seen. No active issues on examination abdomen is benign. Assessment: Patient with acute pancreatitis no peripancreatic complication or any organ failure. Recommendation: IV fluid follow lab advance diet as tolerated
[2018-01-01] MEDS ORDERED: Ketorolac 15 MG/ML VIAL IVP ONE (22:12)
[2018-01-02] MEDS: Ipratropium/Albuterol Neb 3 ML IH SCH ×4 (03:02→21:54)
[2018-01-02 03:03] LABS: Hepatitis A Antibody IgM Nonreactive (Nonreactive); Hepatitis B Core IgM Nonreactive (Nonreactive); Hepatitis B Surface Antigen Nonreactive (Nonreactive); Hepatitis C Virus Antibody Nonreactive (Nonreactive)
[2018-01-02 05:13] LABS: Basophils % 0.2 %; Eosinophils # 0.1 K/mcL (0.0-0.6); Eosinophils % 1.7 %; Hematocrit 37.2 % (37.5-50.1); Hemoglobin 12.9 g/dL (12.9-16.9); Immature Granulocytes % 0.6 % (0-4); Lymphocytes # 0.9 K/mcL (0.6-4.6); Lymphocytes % 13.1 %; Mean Corpuscular HGB Conc 34.7 g/dL (31.6-35.5); Mean Corpuscular Hemoglobin 30.1 pg (28.0-33.3); Mean Corpuscular Volume 86.7 fL (83.0-100.0); Mean Platelet Volume 9.6 fL (9.4-12.4); Monocytes # 0.8 K/mcL (0.0-1.3); Monocytes % 11.5 %; Neutrophils # 4.8 K/mcL (1.6-8.9); Platelet Count 145 K/mcL (140-400); Red Blood Count 4.29 M/mcL (4.19-5.50); Segmented Neutrophils % 72.9 %
[2018-01-02] MEDS: Cefepime HCl 2,000 MG in Water for inj. (sterile) 20 ML 20 ML IVPB SCH ×2 (05:35→17:29)
[2018-01-02] MEDS: *HR* Heparin 5,000 UNIT/ML VIAL SQ SCH ×3 (05:35→21:21)
[2018-01-02 05:46] LABS: Alanine Aminotransferase 74 Units/L (7-52); Albumin 3.5 g/dL (3.5-5.7); Albumin/Globulin Ratio 1.3 (1.1-2.2); Alkaline Phosphatase 142 Units/L (34-104); Aspartate Amino Transferase 42 Units/L (13-39); BUN/Creatinine Ratio 12 (6-26); Blood Urea Nitrogen 10 mg/dL (6-20); Calcium 8.7 mg/dL (8.6-10.3); Carbon Dioxide 24 mEq/L (23-29); Chloride 106 mEq/L (98-107); Globulin 2.7 g/dL (2.4-3.5); Glucose 106 mg/dL (70-105); Lipase 597 Units/L (11-82); Osmolality,Calculated 285 (280-300); Sodium 138 mEq/L (136-145); Total Protein 6.2 g/dL (6.4-8.9); eGFR For Non-African Americans > 60 (> 60)
--- NOTE | 2018-01-02 08:03 | Internal Med Progress Note ---
Hospitalist Progress Note - Encounter Date of Encounter: 01/02/18 Time of Encounter: 10:00 - Subjective Interval History: awake. family present He denies fevers or chills, abd pain, epigastric or back pain, forehead pain or drainage from abscess. He notes none of these things ahve been an issue. Reports that intermittently he has had sharp right occipital pain with radiation down the right neck since sunday. He did not describe any of these symptoms yesterday, but they are present today and similar to how they began last week. + photophobia, pounding sensation right back of head and radiation down right neck. Overall feels muscles in neck are tight/perhaps spasming. No phonophobia, no nausea, emesis. No new rashes. ROM neck is intact. He is very uncomfortable and severity of pain is making him very anxious. - Exam Vitals: Temp Pulse Resp BP Pulse Ox 98.6 F 96 16 124/80 96 01/02/18 04:07 01/02/18 04:07 01/02/18 04:07 01/02/18 04:07 01/02/18 04:07 Exam: General: awake, alert, appears stated age HEENT:EOM intact, pupils equal, round, moist mucus membranes, clear oropharynx, there is no palpable mass or visualized skin changes to the scalp throughout Neck: supple, trachea midline, spasmright trap muscle but no nuchal rigidity appreciated, no LAD submandibular, periauricular or cervical chains Cardiovascular: tachy rate and regular rhythm, normal S1 & S2, no rubs, murmurs or gallops. radial pulses 2+, no lower extremity edema Lungs:Normal breath sounds, no wheezes, or crackles. Normal respiratory effort on room air Abdomen:Soft, non-tender, non-distended, + bowel sounds Neurological: AAOx3, CN grossly intact, EOM intact and painless Skin:Normal color, no rash, no pallor, no purpura or petechiae, no jaundice, center forehead abscess open without drainage and no surrounding erythema or edema - Assessment and Plan (1) Abscess of forehead Current Visit: Yes Status: Acute Assessment and Plan: resolved edema and erythema -s/p I& D in ED -cont broad empiric abx for sepsis as below, abscess on head does not appear to be significant enough to cause sepsis, and he has no meningitic symptoms at this time to suggest spread of infection (2) Elevated troponin Current Visit: Yes Status: Acute Assessment and Plan: Rule out ACS, may be type 2 in setting of sepsis Currently with intermittent chest pressure and sensation of sob/cough with deep inspiration No recent immobilization, travel or clot hx to suggest PE, no hypoxia -CXR with possible LLL infiltrate, though he has no sxs of pna -trops up cont to uptrend now 0.2s -echo normal, no signs endocarditis but valves incompletely visualized -cards following -cards ordered CAL for 01/03 -cont to trend trops (3) Pancreatitis Current Visit: Yes Status: Suspected Assessment and Plan: As indicated by lipase elevation to 800s, now starting to down trend History of prior episode 1999 without etiology identified -CT a/p limited by lack of contrast, pancreas appears normal, small amount of abd ascites adjacent to spleen -s/p fluid boluses, cont high rate IVFs -npo -GI following -lipid panel without tg elevation, denies etoh use, has gallbladder and given elevated alk phos and t bili, may have stone -he is currently asx -MRI abdomen by GI normal appearing pancreas, does not exclude clinical pancreatitis, no cholelithiasis or choledocholithiasis (4) Transaminitis Current Visit: Yes Status: Acute Assessment and Plan: Alk phos 140, ALT 124, AST 101 down trending T bili elevated to 3 now -liver on CT appears normal -hep panel negative -GI consulted as above --MRI abdomen by GI normal appearing pancreas, does not exclude clinical pancreatitis, no cholelithiasis or choledocholithiasis -cont to monitor (5) Sepsis Current Visit: Yes Status: Suspected Assessment and Plan: As evidenced by Fever 102.6, HR 108, Suspected infection, source currently not yet identified -Now afebrile > 24 hrs -in setting of pancreatitis, trop elevation/ruling out endocarditis, abscess forehead s/p i&D, possible pna on CXR, less likely given no sxs -broad spectrum abx vanc + cefepime -s/p fluid boluses and IVFs maintenance currently with stable BPs -bl cxs ngtd -no UTI sxs reported, UA mildly +, Ucx no growth -CXR with ? LL pna and CT a/p with possible bl opacities--however at this time pna less likely given he has no sxs whatsoever of pna -cont to monitor closely -TTE 01/01 normal LVF, EF 65%, no significant valve abnormality, no pulm htn, valves not completely visualized -CAL 01/03 -01/02 given severe headache Neuro consulted, no clear meningitic signs at this time (6) Thrombocytopenia Current Visit: Yes Status: Resolved Assessment and Plan: Plt decreased since admit, though all 3 cell lines have decreased with aggressive iVFs Now normal value -cont to monitor for active bleeding (7) Headache Current Visit: Yes Status: Acute Assessment and Plan: Right Occipital with radiation to right neck -PE without any findings, neuro exam unchanged, no meningitic symptoms or signs at this time -d/w Neurology, consult in place and pauly latonya -rec to check CT ehad and MRI head: MRI no acute IC abnormality, low lying cerebellar tonsils may be related to minimal Chiari 1 malformation; CT head no acute AC abnormality -prn pain medication in place DVT Prophylaxis: heparin sq, but refusing, scds ordered - Time Spent with Patient Total time spent is greater than 50% in coordination of care (as documented) at patient's floor/unit and/or counseling patient: Greater than 35 minutes Plan of Care Discussed with: patient Internal Medicine: Result - Labs CBC & Chem 7: 01/02/18 04:52 01/02/18 04:52 Labs: Short CBC 01/02/18 Range/Units 04:52 WBC 6.6 (4.3-11.1) K/mcL Hgb 12.9 (12.9-16.9) g/dL Hct 37.2 L (37.5-50.1) % Plt Count 145 (140-400) K/mcL Neutrophils # 4.8 (1.6-8.9) K/mcL BMP 01/02/18 04:52 Sodium 138 Potassium 4.0 Chloride 106 Carbon Dioxide 24 BUN 10 Creatinine 0.85 Glucose 106 H Calcium 8.7 Liver Function 01/02/18 Range/Units 04:52 Total Bilirubin 3.0 H (0.3-1.0) mg/dL AST 42 H (13-39) Units/L ALT 74 H (7-52) Units/L Alkaline Phosphatase 142 H (34-104) Units/L Albumin 3.5 (3.5-5.7) g/dL - ABG Interpretation ABG results: PT/INR, D-dimer PT 15.9 Seconds (9.4-12.1) H 12/31/17 18:09 - Impressions Impressions Abdomen MRI 01/01/18 13:00 IMPRESSION: 1. Normal MRI appearance of the pancreas on this unenhanced study. This does not exclude clinical pancreatitis. 2. No choledocholithiasis or obvious cholelithiasis however there is gallbladder wall thickening and suggestion of minimal pericholecystic fluid. If there is clinical concern for acute cholecystitis, consider ultrasound. D/ / Dheeraj Richmond MD / Dheeraj Richmond MD Interpreting Provider: Dheeraj Rcihmond MD Echocardiogram 01/01/18 13:00 Impressions: Normal LV size and function. LVEF= 65%. Normal RV size and function. No hemodynamically significant valvular abnormality. No pulmonary hypertension. Left Ventricular Wall Motion: Rest Echo Findings All wall segments showed normal motion. Findings: Study Quality * Technically adequate exam. ECG Findings * Normal sinus rhythm. Left Ventricle * LVEF 60%. * Normal LV chamber size, wall thickness and function. Right Ventricle * Normal right ventricular structure and function. Left Atrium * Normal left atrial size. Right Atrium * Normal right atrial size. Interatrial Septum * Interatrial septum not well evaluated. Aortic Valve * No aortic regurgitation. * No aortic stenosis. Mitral Valve * Trace mitral regurgitation. Tricuspid Valve * Mild tricuspid regurgitation. * Estimated RVSP is 33 mmHg. * Estimated RA pressure is 10 mmHg. * No pulmonary hypertension. Pulmonic Valve * Trace pulmonic regurgitation. Aorta * Normally sized aortic root. Pericardium * The pericardium appears normal. IVC * Normal IVC dimensions and inspiratory collapse. Consult Discharge Plan - Plan Referrals: NONE,PCP [Primary Care Provider] - (3) Pancreatitis Qualifiers: Pancreatitis type: unspecified pancreatitis type Acute pancreatitis complication: unspecified (5) Sepsis Qualifiers: Sepsis type: sepsis due to unspecified organism Qualified Code(s): A41.9 - Sepsis, unspecified organism (7) Headache Qualifiers: Headache type: unspecified Headache chronicity pattern: acute headache Intractability: not intractable Qualified Code(s): R51 - Headache
--- NOTE | 2018-01-02 08:47 | Cardiology Consult Note ---
<Joelle Farias R - Last Filed: 01/02/18 11:56> Date of Encounter: 01/02/18 Time of Encounter: 08:40 Assessment and Plan (1) Abscess of forehead Status: Acute (2) Elevated troponin Status: Acute (3) Pancreatitis Status: Suspected Qualifiers: Pancreatitis type: unspecified pancreatitis type Acute pancreatitis complication: unspecified Qualified Code(s): K85.90 - Acute pancreatitis without necrosis or infection, unspecified (4) Pneumonia Status: Suspected Qualifiers: Pneumonia type: due to unspecified organism Laterality: left Lung location: lower lobe of lung Qualified Code(s): J18.1 - Lobar pneumonia, unspecified organism (5) Sepsis Status: Suspected Qualifiers: Sepsis type: sepsis due to unspecified organism Qualified Code(s): A41.9 - Sepsis, unspecified organism Discussion w patient/family: The patient had a TTE done yesterday which did not show any signs of endocarditis but the valves were incompletely visualized. The cough with chest pressure is more likely pleuritic in nature. Another troponin has been ordered and will continue to trend until they begin downtrending. Continue to treat sepsis and try to determine the cause. Repeat troponin today has increased from 0.07 to 0.27. Will order a CAL and continue trending troponin. The assessment and plan as outlined above was discussed with the patient and/or family members who expressed understanding and agreement. All questions were answered. Thank you for involving us in the care of your patient. Please call with any questions. History of Present Illness Consult date: 01/01/18 Requesting physician: Stella Mujica Consult reason: elevated trop, chest pressure, SOB Chief complaint: headache History of present illness: Mr. Lovelace is a 37 year old male who presented to the ED 2 days ago for increasing headache, neck pain, SOB and chest pressure. He states the headache started on Sunday and the other symptoms followed. He has never had headaches before and this one has been constant and was only relieved by toradol. He has also had chest pressure since this time and feels as though he cannot catch his breath. He admits to coughing during this time too but has not produced any sputum. He has had fevers as well as an abscess that formed on his forehead. In the ED it was found that he had elevated troponins and there was concern for sepsis with endocarditis. He also had elevated lipase and transaminitis concerning for pancreatitis of a possible gallstone etiology. He denies smoking , alcohol and drug use. He has never had any heart problems or seen a skin toggler. He has no family history of CHF, NM, CAD, or sudden unknown cause at a young age. Past Med Surg Social Fam HX - Past Medical History Medical history: no medical history Psychiatric history: no psych history - Past Surgical History Additional surgical history: Skin graphs - Social History Smoking Status: Never smoker Smokeless Tobacco Status: No Alcohol use: none Drug use: none Medications and Allergies Doxycycline 100 mg PO BID 4 Days #8 capsule 01/06/18 [Rx] 3 Allergy/AdvReac Type Severity Reaction Status Date / Time No Known Allergies Allergy Verified 12/31/17 17:52 All Systems Review: The remainder of the systems were reviewed and are negative - Constitutional Constitutional: fatigue, fever(s), headache(s), no weakness - EENT Eyes: no blurred vision, no loss of vision Nose, mouth and throat: sore throat, throat swelling - Cardiovascular Cardiovascular: dyspnea at rest, dyspnea on exertion, other (chest pressure), no leg edema, no syncope - Respiratory Respiratory: dyspnea, no cough, no wheezing - Gastrointestinal Gastrointestinal: nausea, no abdominal pain, no constipation, no diarrhea - Genitourinary Genitourinary: no dysuria, no hematuria - Musculoskeletal Musculoskeletal: other (neck pain) - Integumentary Integumentary: no erythema, no rash - Neurological Neurological: no abnormal speech, no dizziness, no syncope Physical Examination General: Conversant, Other (pacing in room due to pain and being uncomfortable) HEENT: Normocephaly, Mucus Membranes Moist, Other (healing abscess on r side of forehead) Cardiac: Normal S1 and S2, No Murmur, Other (tachycardic, regular rhythm) Lungs: Normal Breath Sounds, No Wheeze, Rales, Rhonchi Neuro: Alert and responsive, No focal deficits noted Abdomen: Soft, Non-Tender Skin: No rashes noted on visualized skin Musculoskeletal: No Chest Wall Tenderness Extremities: No Cyanosis, No Edema, Normal Pulses Results 01/02/18 04:52 01/02/18 04:52 Lab Results 01/02/18 01/02/18 04:52 04:52 WBC 6.6 Hgb 12.9 Hct 37.2 L Plt Count 145 Sodium 138 Potassium 4.0 Chloride 106 Carbon Dioxide 24 BUN 10 Creatinine 0.85 Glucose 106 H Calcium 8.7 Total Bilirubin 3.0 H AST 42 H ALT 74 H Alkaline Phosphatase 142 H Lipase 597 H Consult Discharge Plan - Plan Instructions: Pancreatitis (DC) Referrals: Derek Baltazar MD [Partnered Physician] - ([facility] during [facility] hours with appointment date and time) NONE,PCP [Primary Care Provider] - Daryl Metzger MD [Partnered Physician] - Sofia Morton MD [Partnered Physician] - ([facility] will call with appointment date and time during bussiness hours ) Prescriptions: Doxycycline 100 mg PO BID 4 Days #8 capsule <Dheeraj Quarles - Last Filed: 01/11/18 18:26> Date of Encounter: 01/02/18 Time of Encounter: 15:00 - Attending Attestation I examined this patient and my medical decision-making was reviewed with the Resident Physician. I agree with the documented findings, disposition and treatment plan as described except to the extent set forth below. CC: chest pain HPI: Pt admitted with chest pain, pressure sensation, lateral left chest, worse with cough, 8/10 at most severe, improves with changes in position and with not breathing. He has had recurrent elevated temps, fevers, shaking chills and felling very toxic. Initial troponins were mildly elevated, have trended up slightly. He underwent a technically limited TTE, which did not show wall motion abnormalites, but did not visualize valves well. PMH: reviewed ROS: reviewed PE: Pt seen and examined, agreee with findings as documented IMP/Plan; 1. Chest pain: plueritic, does not appear cardiac 2. Elevated troponin: unclear significance, in light of recurrent temps suspect is due to demand ischemia, however concerning for possible endocarditis, will order CAL to better visualize valvular structures, rule out vegetations consistent with endocarditis. 3. Sepsis: primary site not idenitified, await results of blood cultures and CAL 4. Pnuemonia: awaiting repeat CXR and culture results. Assessment and Plan Discussion w patient/family: The assessment and plan as outlined above was discussed with the patient and/or family members who expressed understanding and agreement. All questions were answered. Thank you for involving us in the care of your patient. Please call with any questions. History of Present Illness History of present illness: Mr. Lovelace is a 37 year old male All Systems Review: The remainder of the systems were reviewed and are negative Results 01/03/18 06:49 01/06/18 05:29
--- NOTE | 2018-01-02 09:53 | Gastroenterology Progress Note ---
<Rashid Cotter - Last Filed: 01/02/18 11:36> Date of Encounter: 01/02/18 Time of Encounter: 09:50 - Assessment and plan (1) Pancreatitis Current Visit: Yes Status: Suspected Assessment and plan: Presented with abdominal pain; one prior episode of pancreatitis in early - Distant history of alcohol abuse; denies current use - Unknown cause at this time; possibly secondary to gallstone - Lipase: 562, 828, 597 Vanessa score, 48 hrs: 1 (Hct drop >10% from admission) BISAP Score: 1 (2 SIRS criteria on admission) MRI abdomen demonstrated the following: - Normal MRI appearance of the pancreas; does not exclude clinical pancreatitis. - No choledocholithiasis or obvious cholelithiasis - Gallbladder wall thickening and suggestion of minimal pericholecystic fluid Plan: - Ultram, oxycodone for pain control Qualifiers: Pancreatitis type: unspecified pancreatitis type Acute pancreatitis complication: unspecified Qualified Code(s): K85.90 - Acute pancreatitis without necrosis or infection, unspecified (2) Transaminitis Current Visit: Yes Status: Acute Assessment and plan: Unknown etiology at this time Hepatic panel negative - AST: 101, 60, 42 - ALT: 124, 89, 74 - Alkaline phosphatase: 140, 131, 142 - Total bilirubin: 1.7, 2.7, 3 (3) Sepsis Current Visit: Yes Status: Suspected Assessment and plan: Patient presented with 2 SIRS criteria: tachycardia, fever - Unknown infectious source at this time; possibly facial abscess - ECHO was performed to r/o IE; was negative - Blood CXs pending - Patient is currently on IV Vanco and cefepime - Vital signs are stable at this time. Qualifiers: Sepsis type: sepsis due to unspecified organism Qualified Code(s): A41.9 - Sepsis, unspecified organism - Time Spent With Patient Total time spent is greater than 50% in coordination of care (as documented) at patient's floor/unit and/or counseling patient: - Subjective Interval history: Patient was seen and examined at [facility]; he states that he is experiencing some pain behind his right ear. Pain is sharp and intermittent. It is made worse with palpation. There is no visible erythema or swelling in the area. He states that his abdominal discomfort has resolved. He denies fever, chills, nausea, vomiting, or abdominal pain. He requests something to eat. He has no further complaints. - Constitutional Vitals: Temp Pulse Resp BP Pulse Ox 98.6 F 96 18 124/80 99 01/02/18 04:07 01/02/18 04:07 01/02/18 09:33 01/02/18 04:07 01/02/18 09:33 - Other Additional findings: CONSTITUTIONAL: alert, in no acute distress HEAD: Normocephalic. 4mm scab present on forehead EYES: No scleral icterus NECK: Supple, no lymphadenopathy HEART: RRR, S1, S2, no murmurs, rubs, or gallops LUNGS: CTAB, no wheezes, rales, or rhonchi ABDOMEN: Soft, nontender, nondistended EXTREMITIES: no clubbing, cyanosis, or edema SKIN: No jaundice Results - Labs CBC & Chem 7: 01/02/18 04:52 01/02/18 04:52 Labs: Last Result Calcium 8.7 mg/dL (8.6-10.3) 01/02/18 04:52 Troponin I 0.27 ng/mL (< 0.04) H* 01/02/18 08:36 Triglycerides 94 mg/dL (< 150) 01/01/18 06:01 Urine Opiates Screen Negative ng/mL (Pqyxcl=949) 12/31/17 17:49 Entire Visit Hgb 12.9 g/dL (12.9-16.9) 01/02/18 04:52 Hct 37.2 % (37.5-50.1) L 01/02/18 04:52 PT 15.9 Seconds (9.4-12.1) H 12/31/17 18:09 Total Bilirubin 3.0 mg/dL (0.3-1.0) H 01/02/18 04:52 AST 42 Units/L (13-39) H 01/02/18 04:52 ALT 74 Units/L (7-52) H 01/02/18 04:52 Lipase 597 Units/L (11-82) H 01/02/18 04:52 - ABG ABG results: PT/INR, D-dimer PT 15.9 Seconds (9.4-12.1) H 12/31/17 18:09 - Impressions Impressions Abdomen MRI 01/01/18 13:00 IMPRESSION: 1. Normal MRI appearance of the pancreas on this unenhanced study. This does not exclude clinical pancreatitis. 2. No choledocholithiasis or obvious cholelithiasis however there is gallbladder wall thickening and suggestion of minimal pericholecystic fluid. If there is clinical concern for acute cholecystitis, consider ultrasound. D/ / Dheeraj Richmond MD / Dheeraj Richmond MD Interpreting Provider: Dheeraj Richmond MD Echocardiogram 01/01/18 13:00 Impressions: Normal LV size and function. LVEF= 65%. Normal RV size and function. No hemodynamically significant valvular abnormality. No pulmonary hypertension. Left Ventricular Wall Motion: Rest Echo Findings All wall segments showed normal motion. Findings: Study Quality * Technically adequate exam. ECG Findings * Normal sinus rhythm. Left Ventricle * LVEF 60%. * Normal LV chamber size, wall thickness and function. Right Ventricle * Normal right ventricular structure and function. Left Atrium * Normal left atrial size. Right Atrium * Normal right atrial size. Interatrial Septum * Interatrial septum not well evaluated. Aortic Valve * No aortic regurgitation. * No aortic stenosis. Mitral Valve * Trace mitral regurgitation. Tricuspid Valve * Mild tricuspid regurgitation. * Estimated RVSP is 33 mmHg. * Estimated RA pressure is 10 mmHg. * No pulmonary hypertension. Pulmonic Valve * Trace pulmonic regurgitation. Aorta * Normally sized aortic root. Pericardium * The pericardium appears normal. IVC * Normal IVC dimensions and inspiratory collapse. Consult Discharge Plan - Plan Referrals: NONE,PCP [Primary Care Provider] - <Sofia Morton - Last Filed: 01/03/18 16:44> Date of Encounter: 01/02/18 Time of Encounter: 14:25 - Time Spent With Patient Total time spent is greater than 50% in coordination of care (as documented) at patient's floor/unit and/or counseling patient: - Constitutional Vitals: Temp Pulse Resp BP Pulse Ox 97.9 F 90 15 131/88 97 01/03/18 10:34 01/03/18 10:34 01/03/18 15:31 01/03/18 10:34 01/03/18 15:31 Results - Labs CBC & Chem 7: 01/03/18 06:49 01/03/18 06:49 Labs: Last Result Calcium 8.5 mg/dL (8.6-10.3) L 01/03/18 06:49 Troponin I 0.07 ng/mL (< 0.04) H* 01/02/18 14:55 Triglycerides 94 mg/dL (< 150) 01/01/18 06:01 Urine Opiates Screen Negative ng/mL (Faatdb=273) 12/31/17 17:49 Entire Visit Hgb 12.5 g/dL (12.9-16.9) L 01/03/18 06:49 Hct 36.3 % (37.5-50.1) L 01/03/18 06:49 PT 15.9 Seconds (9.4-12.1) H 12/31/17 18:09 Total Bilirubin 3.4 mg/dL (0.3-1.0) H 01/03/18 06:49 AST 39 Units/L (13-39) 01/03/18 06:49 ALT 63 Units/L (7-52) H 01/03/18 06:49 Lipase 579 Units/L (11-82) H 01/03/18 06:49 - ABG ABG results: PT/INR, D-dimer PT 15.9 Seconds (9.4-12.1) H 12/31/17 18:09 - Attending Attestation I examined this patient and my medical decision-making was reviewed with the Resident Physician. I agree with the documented findings, disposition and treatment plan as described except to the extent set forth below. Pt seen abdominal pain is better. O/E abdomen is benign. Assessment acute pancreatitis. Recommendation: Follow up with GI as an outpatient once discharged as may need endoscopic ultrasound for workup of his pancreatitis
[2018-01-02] MEDS: Aspirin 81 MG TAB.CHEW PO SCH (10:27)
[2018-01-02] MEDS ORDERED: Ketorolac 15 MG/ML VIAL IVP ONE (10:42)
[2018-01-02] MEDS ORDERED: *HR* HYDROcodone/Acet 5/325 mg TABLET PO PRN (12:31)
[2018-01-02] MEDS: Ringers Solution, Lactated 2,000 ML IVC SCH (12:56)
--- NOTE | 2018-01-02 15:39 | Neurology - Consult Note ---
Date of Encounter: 01/02/18 Time of Encounter: 15:35 Assessment and Plan (1) Occipital neuralgia of right side Current Visit: Yes Status: Acute Patient developed acute onset of persistent cervicogenic pain referring to the right eye, in the setting of feverish illness that has been effectively treated. He has no fever, no nuchal rigidity and sound mind now so i agree that no evidence of meningitis or encephalitis. The pain is at the right base of skull and postauricular region resembling right occipital neuralgia related to the minor branch. This commonly a benign and idiopathic condition that would be best treated with occipital nerve blockade procedure. MRI of brain reviewed and it showed low lying tonsil which could be mild case of chiari malformation that can have this type of pain more commonly. No intervention needed. Will recommend treating his medical conditions and headaches symptomatically. This type of pain usually do not respond well to oral medications. short term steroid may help. He is advised that if headaches persistent an occipital nerve blockade procedure can be done as an outpatient. No further testing recommended. History of Present Illness Chief complaint: occipital headache HPI: Mr. Lovelace is a 37 year old male with no significant PMH who is consulted for new onset persistent occipital headache. Patient initially was admitted to the ER due to onset of fever, growing skin abscess on the right forehead. Patient developed a pimp on the right forehead few days and few days ago the pimp appeared rapidly growing and he was his PCP who offered him antibiotics. Meanwhile at the time the pimp appeared large he also developed rather diffuse muscle pain. He developed sore spot at the right occipital region, behind the right ear as well pressure to his right eye, although he has no visual difficulty. He describes a throbbing pain that is persistent and when the pain is severe he could have nausea. He has no prior history of headaches and no history of migraines. He is currently afebrile. He has no nuchal rigidity. He does still has some neck pain bilaterally as part of the muscle pain. Speech is fluent. Mental status intact. Past Med Surg Social Fam HX - Past Medical History Medical history: no medical history Psychiatric history: no psych history - Past Surgical History Additional surgical history: Skin graphs - Social History Smoking Status: Never smoker Smokeless Tobacco Status: No Alcohol use: none Drug use: none Medications and Allergies No Known Home Drugs 01/01/18 [History] 3 Allergy/AdvReac Type Severity Reaction Status Date / Time No Known Allergies Allergy Verified 12/31/17 17:52 All Systems: The remainder of the systems were reviewed and are negative Physical Examination - Vital Signs Vital Signs: Initial Vital Signs Temp Pulse Resp BP Pulse Ox 101.1 F H 108 20 142/92 97 12/31/17 17:13 12/31/17 17:13 12/31/17 17:13 12/31/17 17:13 12/31/17 17:13 - Constitutional General appearance: comfortable - Neurologic Detailed motor examination: full strength in all major muscle groups Motor examination - right side: 5/5: deltoids, biceps, triceps, wrist flexion, wrist extension, exercise equipment specialist, hip flexors, tibialis Anterior, quadriceps, toe extension (EHL), plantarflexion Motor examination - left side: 5/5: deltoids, biceps, triceps, wrist flexion, wrist extension, hip flexors, exercise equipment specialist, quadriceps, tibialis Anterior, toe extension (EHL), plantarflexion Detailed sensory examination: intact Posture: other (one) Reflex and gait examination: intact Reflexes: Biceps: 2+, Triceps: 2+, Brachioradialis: 2+, Patella: 2+, Achilles: 2 + Mental Status Examination: awake, alert, oriented to person, oriented to place, oriented to time, follows commands appropriately, answers questions appropriately, no agnosia, no aphasia, no aproxia Cranial nerve examination: PERRL, EOMI, visual verde intact, corneal reflexes brisk symmetrically, sensory to face intact, mastication intact, no facial asymmetry is present, no dysarthria, hearing is intact symmetrically, soft palate elevates bilaterally upon phonation, gag reflex intact, flexes SCM and trapezius muscles symmetrically with full power, tongue protrudes midline, no atrophy or facial fasiculations present Cerebellar examination: no dysmetria, performs finger to nose and heel to masters symmetrically without ataxia, no gait ataxia, no truncal ataxia, no difficulty with rapid alternating movements Results - Laboratory Findings CBC and BMP: 01/02/18 04:52 01/02/18 04:52 Abnormal lab findings: Abnormal lab results Hct 37.2 % (37.5-50.1) L 01/02/18 04:52 PT 15.9 Seconds (9.4-12.1) H 12/31/17 18:09 Glucose 106 mg/dL (70-105) H 01/02/18 04:52 Phosphorus 2.0 mg/dL (2.7-4.5) L 12/31/17 18:09 Total Bilirubin 3.0 mg/dL (0.3-1.0) H 01/02/18 04:52 Direct Bilirubin 0.8 mg/dL (0.0-0.2) H 12/31/17 18:09 AST 42 Units/L (13-39) H 01/02/18 04:52 ALT 74 Units/L (7-52) H 01/02/18 04:52 Alkaline Phosphatase 142 Units/L (34-104) H 01/02/18 04:52 Troponin I 0.27 ng/mL (< 0.04) H* 01/02/18 08:36 Serum Total Protein 6.2 g/dL (6.4-8.9) L 01/02/18 04:52 HDL Cholesterol 31 mg/dL (40-59) L 01/01/18 06:01 Lipase 597 Units/L (11-82) H 01/02/18 04:52 Urine Protein 100 mg/dL (Neg-Trace) H 12/31/17 17:49 Urine Ketones 40 mg/dL (Negative) H 12/31/17 17:49 Urine Bilirubin Moderate (Negative) H 12/31/17 17:49 Ur Leukocyte Esterase Trace (Negative) H 12/31/17 17:49 Urine Microscopic WBC 3-5 per hpf (0-3) H 12/31/17 17:49 Ur Squamous Epith Cells Moderate per lpf (None-Few) H 12/31/17 17:49 Ur Culture Indicated? YES (NO) A 12/31/17 17:49 - Diagnostic Findings Additional findings: CT OF THE HEAD WITHOUT CONTRAST 01/02/2018 1:39 pm TECHNIQUE: CT of the head was performed without the administration of intravenous contrast. Dose modulation, iterative reconstruction, and/or weight based adjustment of the mA/kV was utilized to reduce the radiation dose to as low as reasonably achievable. COMPARISON: None. HISTORY: ORDERING SYSTEM PROVIDED HISTORY: severe headache FINDINGS: BRAIN/VENTRICLES: There is no acute intracranial hemorrhage, mass effect or midline shift. No abnormal extra-axial fluid collection. The decker-white differentiation is maintained without evidence of an acute infarct. There is no evidence of hydrocephalus. ORBITS: The visualized portion of the orbits demonstrate no acute abnormality. SINUSES: The visualized paranasal sinuses and mastoid air cells demonstrate no acute abnormality. SOFT TISSUES/SKULL: No acute abnormality of the visualized skull or soft tissues. CT/CT head/brain wo con IMPRESSION: No acute intracranial abnormality. D/ / Millie Rich MD / Millie Rich MD Interpreting Provider: Millie Rich MD Consult Discharge Plan - Plan Referrals: NONE,PCP [Primary Care Provider] -
[2018-01-02] MEDS ORDERED: Ketorolac 15 MG/ML VIAL IVP PRN (19:00)
[2018-01-02] MEDS ORDERED: Ringers Solution, Lactated 1,000 ML IVC SCH (23:15)
[2018-01-03] MEDS: Ipratropium/Albuterol Neb 3 ML IH SCH ×4 (04:10→21:42)
[2018-01-03] MEDS: *HR* Heparin 5,000 UNIT/ML VIAL SQ SCH ×3 (05:37→21:53)
[2018-01-03] MEDS: Cefepime HCl 2,000 MG in Water for inj. (sterile) 20 ML 20 ML IVPB SCH ×2 (05:51→16:36)
[2018-01-03 07:14] LABS: Basophils % 0.3 %; Eosinophils # 0.2 K/mcL (0.0-0.6); Eosinophils % 3.1 %; Hematocrit 36.3 % (37.5-50.1); Hemoglobin 12.5 g/dL (12.9-16.9); Immature Granulocytes % 0.3 % (0-4); Lymphocytes % 15.7 %; Mean Corpuscular HGB Conc 34.4 g/dL (31.6-35.5); Mean Corpuscular Hemoglobin 30.3 pg (28.0-33.3); Mean Corpuscular Volume 87.9 fL (83.0-100.0); Mean Platelet Volume 9.3 fL (9.4-12.4); Monocytes # 0.6 K/mcL (0.0-1.3); Monocytes % 8.6 %; Neutrophils # 4.7 K/mcL (1.6-8.9); Platelet Count 194 K/mcL (140-400); Red Blood Count 4.13 M/mcL (4.19-5.50)
[2018-01-03 07:31] LABS: Alanine Aminotransferase 63 Units/L (7-52); Albumin 3.3 g/dL (3.5-5.7); Albumin/Globulin Ratio 1.2 (1.1-2.2); Alkaline Phosphatase 160 Units/L (34-104); Aspartate Amino Transferase 39 Units/L (13-39); BUN/Creatinine Ratio 14 (6-26); Bilirubin,Total 3.4 mg/dL (0.3-1.0); Blood Urea Nitrogen 10 mg/dL (6-20); Calcium 8.5 mg/dL (8.6-10.3); Carbon Dioxide 26 mEq/L (23-29); Chloride 106 mEq/L (98-107); Globulin 2.7 g/dL (2.4-3.5); Glucose 105 mg/dL (70-105); Lipase 579 Units/L (11-82); Osmolality,Calculated 289 (280-300); Potassium 3.8 mEq/L (3.5-5.1); Sodium 140 mEq/L (136-145); eGFR For Non-African Americans > 60 (> 60)
[2018-01-03] MEDS ORDERED: 0.9 % Sodium Chloride 500 ML IVC ONE (08:17)
[2018-01-03] MEDS ORDERED: Tetracaine/Benzocaine/Butamben 200MG/SPRAY (100SPY/BOT) MM ONE (08:17)
[2018-01-03] MEDS ORDERED: *HR* Midazolam HCl 2 MG/2 ML VIAL IVP PRN (08:17)
[2018-01-03] MEDS ORDERED: *HR* FentaNYL (PF) 100 MCG/2 ML VIAL IVP PRN (08:17)
[2018-01-03] MEDS ORDERED: Lidocaine Viscous Oral Soln 15 ML SOLUTION MM PRN (08:17)
--- NOTE | 2018-01-03 08:25 | Cardiology Progress Note ---
Date of Encounter: 01/03/18 Assessment and Plan (1) Abscess of forehead Current Visit: Yes Status: Acute (2) Elevated troponin Current Visit: Yes Status: Acute (3) Pancreatitis Current Visit: Yes Status: Suspected Qualifiers: Pancreatitis type: unspecified pancreatitis type Acute pancreatitis complication: unspecified (4) Pneumonia Current Visit: Yes Status: Suspected Qualifiers: Pneumonia type: due to unspecified organism Laterality: left Lung location: lower lobe of lung Qualified Code(s): J18.1 - Lobar pneumonia, unspecified organism (5) Sepsis Current Visit: Yes Status: Suspected Qualifiers: Sepsis type: sepsis due to unspecified organism Qualified Code(s): A41.9 - Sepsis, unspecified organism Discussion w patient/family: 01-02-18: The patient had a TTE done yesterday which did not show any signs of endocarditis but the valves were incompletely visualized. The cough with chest pressure is more likely pleuritic in nature. Another troponin has been ordered and will continue to trend until they begin downtrending. Continue to treat sepsis and try to determine the cause. Repeat troponin today has increased from 0.07 to 0.27. Will order a CAL and continue trending troponin. 01-03-18: Pt has undergone CAL for better visualization of the heart valves. Awaiting results from CAL. Troponin has decreased from 0.27 to 0.07 today. The assessment and plan as outlined above was discussed with the patient and/or family members who expressed understanding and agreement. All questions were answered. Thank you for involving us in the care of your patient. Please call with any questions. Subjective Interval history: Pt seen this morning after CAL. He is still having headaches and chest pressure but states he has been feeling better. No complaints at this time. Objective Vital Signs, Last 4 Hours Temp Pulse Resp BP Pulse Ox 01/03/18 07:47 99.1 F 97 16 132/86 95 01/03/18 04:25 98.1 F 117 16 142/89 94 General: Conversant, No Apparent Distress HEENT: Atraumatic, Normocephaly, Mucus Membranes Moist Neck: No JVD, Normal carotid pulses Cardiac: Reg Rate and Rhythm, Normal S1 and S2, No Murmur Lungs: Normal Breath Sounds, No Wheeze, Rales, Rhonchi Neuro: Alert and responsive, No focal deficits noted Abdomen: Soft, Non-Tender Skin: No rashes noted on visualized skin Musculoskeletal: No Chest Wall Tenderness Extremities: No Cyanosis, No Edema, Normal Pulses Results 01/03/18 06:49 01/03/18 06:49 Lab Results 01/02/18 01/02/18 01/03/18 08:36 14:55 06:49 WBC 6.5 Hgb 12.5 L Hct 36.3 L Plt Count 194 Sodium Potassium Chloride Carbon Dioxide BUN Creatinine Glucose Calcium Total Bilirubin AST ALT Alkaline Phosphatase Troponin I 0.27 H* 0.07 H* Lipase 01/03/18 06:49 WBC Hgb Hct Plt Count Sodium 140 Potassium 3.8 Chloride 106 Carbon Dioxide 26 BUN 10 Creatinine 0.71 Glucose 105 Calcium 8.5 L Total Bilirubin 3.4 H AST 39 ALT 63 H Alkaline Phosphatase 160 H Troponin I Lipase 579 H Consult Discharge Plan - Plan Referrals: NONE,PCP [Primary Care Provider] -
[2018-01-03] MEDS ORDERED: *HR* Midazolam HCl 5 MG/5 ML VIAL IVP ONE ×2 (08:53→08:54)
--- NOTE | 2018-01-03 09:06 | Event Note ---
<Joelle Farias - Last Filed: 01/03/18 11:19> Date of Encounter: 01/03/18 Time of Encounter: 11:24 - Cardiology Event Note Pt underwent a CAL today to evaluate for endocarditis. He tolerated this procedure well. The results of the CAL were negative for any vegetations on the valves. There was some mild mitral regurgitation. <Derek Baltazar - Last Filed: 01/03/18 11:34> Date of Encounter: 01/03/18 - Cardiology Event Note I examined this patient and my medical decision-making was reviewed with the Resident Physician. I agree with the documented findings, disposition and treatment plan as described except to the extent set forth below.
[2018-01-03] MEDS: *HR* Midazolam HCl 5 MG/5 ML VIAL IVP ONE ×2 (09:15→09:40)
[2018-01-03] MEDS: Aspirin 81 MG TAB.CHEW PO SCH (11:14)
[2018-01-03] MEDS: 0.9 % Sodium Chloride 1,000 ML IVC SCH (16:37)
--- NOTE | 2018-01-03 19:12 | Internal Med Progress Note ---
Hospitalist Progress Note - Encounter Date of Encounter: 01/03/18 Time of Encounter: 14:00 - Subjective Interval History: awake. feeing better today, headache much improved, no nausea, emesis, fevers or chills. continues without abd pain, back pain or chest pain - Exam Vitals: Temp Pulse Resp BP Pulse Ox 97.9 F 90 15 131/88 97 01/03/18 10:34 01/03/18 10:34 01/03/18 15:31 01/03/18 10:34 01/03/18 15:31 Exam: General: awake, alert, appears stated age HEENT:EOM intact, pupils equal, round, moist mucus membranes Neck: supple, trachea midline, rom intact and painless Cardiovascular: reg rate and regular rhythm, normal S1 & S2, no rubs, murmurs or gallops. no lower extremity edema Lungs:Normal breath sounds, no wheezes, or crackles. Normal respiratory effort on room air Abdomen:Soft, non-tender, non-distended, + bowel sounds Neurological: AAOx3 Skin:Normal color, no rash, no pallor, no purpura or petechiae, no jaundice, center forehead abscess open without drainage and no surrounding erythema or edema - Assessment and Plan (1) Abscess of forehead Current Visit: Yes Status: Acute Assessment and Plan: resolved edema and erythema -s/p I& D in ED -cont broad empiric abx for sepsis as below, abscess on head does not appear to be significant enough to cause sepsis, and he has no meningitic symptoms at this time to suggest spread of infection (2) Elevated troponin Current Visit: Yes Status: Acute Assessment and Plan: Rule out ACS, may be type 2 in setting of sepsis Currently with intermittent chest pressure and sensation of sob/cough with deep inspiration No recent immobilization, travel or clot hx to suggest PE, no hypoxia -CXR with possible LLL infiltrate, though he has no sxs of pna -trops now down trending -echo normal, no signs endocarditis but valves incompletely visualized -cards following -cards ordered CAL 01/03 -fu cards recs (3) Pancreatitis Current Visit: Yes Status: Suspected Assessment and Plan: As indicated by lipase elevation to 800s, cont to down trend History of prior episode 1999 without etiology identified -CT a/p limited by lack of contrast, pancreas appears normal, small amount of abd ascites adjacent to spleen -s/p fluid boluses, cont high rate IVFs -npo -GI following -lipid panel without tg elevation, denies etoh use,gb without stones -he is currently asx -MRI abdomen by GI normal appearing pancreas, does not exclude clinical pancreatitis, no cholelithiasis or choledocholithiasis -diet advancement as per gi (4) Transaminitis Current Visit: Yes Status: Acute Assessment and Plan: Alk phos 140, ALT 124, AST 101 down trending,s table T bili elevated to 3.4 npw -liver on CT appears normal -hep panel negative -GI consulted as above --MRI abdomen by GI normal appearing pancreas, does not exclude clinical pancreatitis, no cholelithiasis or choledocholithiasis -cont to monitor -fu gi recs (5) Sepsis Current Visit: Yes Status: Resolved Assessment and Plan: As evidenced by Fever 102.6, HR 108, Suspected infection, source currently not yet identified -Now afebrile > 24 hrs -in setting of pancreatitis, trop elevation/ruling out endocarditis, abscess forehead s/p i&D, possible pna on CXR, less likely given no sxs -broad spectrum abx vanc + cefepime -s/p fluid boluses and IVFs maintenance currently with stable BPs -bl cxs ngtd -no UTI sxs reported, UA mildly +, Ucx no growth -CXR with ? LL pna and CT a/p with possible bl opacities--however at this time pna less likely given he has no sxs whatsoever of pna -cont to monitor closely -TTE 01/01 normal LVF, EF 65%, no significant valve abnormality, no pulm htn, valves not completely visualized -CAL 01/03 -01/02 given severe headache Neuro consulted, no clear meningitic signs at this time (6) Thrombocytopenia Current Visit: Yes Status: Resolved Assessment and Plan: Plt decreased since admit, though all 3 cell lines have decreased with aggressive iVFs Now normal value -cont to monitor for active bleeding (7) Headache Current Visit: Yes Status: Acute Assessment and Plan: Right Occipital with radiation to right neck, improved -PE without any findings, neuro exam unchanged, no meningitic symptoms or signs at this time -rec to check CT ehad and MRI head: MRI no acute IC abnormality, low lying cerebellar tonsils may be related to minimal Chiari 1 malformation; CT head no acute AC abnormality -prn pain medication in place -neuro following and cont current treatment, chiari malformation requires no further work up or treatment -will have him fu outpt with dr Metzger DVT Prophylaxis: heparin sq, but refusing, scds ordered - Time Spent with Patient Total time spent is greater than 50% in coordination of care (as documented) at patient's floor/unit and/or counseling patient: 25 - 35 minutes Plan of Care Discussed with: patient Internal Medicine: Result - Labs CBC & Chem 7: 01/03/18 06:49 01/03/18 06:49 Labs: Short CBC 01/03/18 Range/Units 06:49 WBC 6.5 (4.3-11.1) K/mcL Hgb 12.5 L (12.9-16.9) g/dL Hct 36.3 L (37.5-50.1) % Plt Count 194 (140-400) K/mcL Neutrophils # 4.7 (1.6-8.9) K/mcL BMP 01/03/18 06:49 Sodium 140 Potassium 3.8 Chloride 106 Carbon Dioxide 26 BUN 10 Creatinine 0.71 Glucose 105 Calcium 8.5 L Liver Function 01/03/18 Range/Units 06:49 Total Bilirubin 3.4 H (0.3-1.0) mg/dL AST 39 (13-39) Units/L ALT 63 H (7-52) Units/L Alkaline Phosphatase 160 H (34-104) Units/L Albumin 3.3 L (3.5-5.7) g/dL - ABG Interpretation ABG results: PT/INR, D-dimer PT 15.9 Seconds (9.4-12.1) H 12/31/17 18:09 Consult Discharge Plan - Plan Referrals: NONE,PCP [Primary Care Provider] - (3) Pancreatitis Qualifiers: Pancreatitis type: unspecified pancreatitis type Acute pancreatitis complication: unspecified (5) Sepsis Qualifiers: Sepsis type: sepsis due to unspecified organism Qualified Code(s): A41.9 - Sepsis, unspecified organism (7) Headache Qualifiers: Headache type: unspecified Headache chronicity pattern: acute headache Intractability: not intractable Qualified Code(s): R51 - Headache
[2018-01-04] MEDS: 0.9 % Sodium Chloride 1,000 ML IVC SCH ×5 (02:07→23:22)
[2018-01-04] MEDS: Ipratropium/Albuterol Neb 3 ML IH SCH ×4 (04:09→21:33)
[2018-01-04] MEDS: *HR* Heparin 5,000 UNIT/ML VIAL SQ SCH ×3 (05:27→23:16)
[2018-01-04] MEDS: Cefepime HCl 2,000 MG in Water for inj. (sterile) 20 ML 20 ML IVPB SCH ×2 (05:43→17:59)
[2018-01-04 06:37] LABS: INR 1.2; Prothrombin Time 13.1 Seconds (9.4-12.1)
[2018-01-04 06:56] LABS: Alanine Aminotransferase 154 Units/L (7-52); Albumin 3.2 g/dL (3.5-5.7); Albumin/Globulin Ratio 1.1 (1.1-2.2); Alkaline Phosphatase 198 Units/L (34-104); Aspartate Amino Transferase 153 Units/L (13-39); BUN/Creatinine Ratio 8 (6-26); Bilirubin,Total 2.4 mg/dL (0.3-1.0); Blood Urea Nitrogen 6 mg/dL (6-20); Calcium 8.3 mg/dL (8.6-10.3); Carbon Dioxide 25 mEq/L (23-29); Chloride 107 mEq/L (98-107); Globulin 2.8 g/dL (2.4-3.5); Glucose 112 mg/dL (70-105); Lipase 373 Units/L (11-82); Osmolality,Calculated 290 (280-300); Potassium 3.4 mEq/L (3.5-5.1); Sodium 141 mEq/L (136-145); eGFR For Non-African Americans > 60 (> 60)
[2018-01-04] MEDS: Aspirin 81 MG TAB.CHEW PO SCH (08:56)
--- NOTE | 2018-01-04 12:33 | Internal Med Progress Note ---
Hospitalist Progress Note - Encounter Date of Encounter: 01/04/18 Time of Encounter: 09:50 - Subjective Interval History: awake, overall feeling better each day. mild quinonez. no nausea, emesis, abd pain, fevers or chills. Informed of cxr results. states he was coughing a little bit in days prior, non productive, none now. no wheezing orthopnea, pnd, sob. - Exam Vitals: Temp Pulse Resp BP Pulse Ox 98.2 F 86 14 129/83 97 01/04/18 10:19 01/04/18 10:19 01/04/18 10:47 01/04/18 10:19 01/04/18 10:47 Exam: General: awake, alert, appears stated age, non toxic appearing Neck: supple, trachea midline, rom intact and painless Cardiovascular: reg rate and regular rhythm, normal S1 & S2, no rubs, murmurs or gallops. no lower extremity edema Lungs:Normal breath sounds, no wheezes, or crackles. Normal respiratory effort on room air Abdomen:Soft, non-tender, non-distended, + bowel sounds Neurological: AAOx3 Skin:Normal color, no rash, no pallor, no purpura or petechiae, no jaundice, center forehead abscess open without drainage and no surrounding erythema or edema - Assessment and Plan (1) Abscess of forehead Current Visit: Yes Status: Acute Assessment and Plan: resolved edema and erythema, healing site of I&D without drainage -s/p I& D in ED -initially on broad empiric abx for sepsis as below, abscess on head while significant on admit resolved quikly and was not initally thought to be cause of sepsis, however, with remainder of work up largely negative for infectious cause, have resolved this to be his primary infectious site -no meningitic symptoms throughout admit to suggest spread of head abscess (2) Elevated troponin Current Visit: Yes Status: Acute Assessment and Plan: Rule out ACS, may be type 2 in setting of sepsis Initially had intermittent chest pressure and sensation of sob/cough with deep inspiration No recent immobilization, travel or clot hx to suggest PE, no hypoxia -CXR with possible LLL infiltrate, though he has no sxs of pna -trops now down trending -echo normal, no signs endocarditis but valves incompletely visualized -cards ordered CAL 01/03 and confirmed no vegetations -cardiology followed, Dr Baltazar-- no acute interventions or further work up recommended -no speckling documented on echo to suggest infiltrative disease -will have him fu out with Dr Baltazar upon dc (3) Pancreatitis Current Visit: Yes Status: Acute Assessment and Plan: As indicated by lipase elevation to 800s,overall down trending History of prior episode 1999 without etiology identified He has been asx throughout his entire presentation/admission -CT a/p limited by lack of contrast, pancreas appears normal, small amount of abd ascites adjacent to spleen -s/p fluid boluses, and high rate IVFs -npo initially now advancing diet as d/w Dr Morton -lipid panel without tg elevation, denies etoh use,gb without stones -MRCP abdomen by GI normal appearing pancreas, does not exclude clinical pancreatitis, no cholelithiasis or choledocholithiasis -d/w Dr Morton 01/03 and given asx may cont to advance diet--he will fu outpt in a couple weeks for further management--likely will need EUS (4) Transaminitis Current Visit: Yes Status: Acute Assessment and Plan: Had been down trending, now 01/04 again uptrending ast 153, alt 154, alk phos 198 T bili is downtrending and now 2.4 -liver on CT appears normal -hep panel negative -GI consulted as above --MRCP abdomen by GI normal appearing pancreas, does not exclude clinical pancreatitis, no cholelithiasis or choledocholithiasis -d/w Dr Morton 01/03--given normal ercp no further intervention at this time, will have him fu in office for further outpt work up, likely EUS and I suspect autoimmunie work up -will check HIV while here (5) Sepsis Current Visit: Yes Status: Resolved Assessment and Plan: As evidenced by Fever 102.6, HR 108, Resolved Suspected infection, source suspected to be forehead abscess -in setting of pancreatitis, trop elevation, ruled out endocarditis, abscess forehead s/p i&D, possible pna on CXR, less likely given no sxs, but treating as such -broad spectrum abx vanc + cefepime initally -s/p fluid boluses and IVFs maintenance with stable bps -bl cxs ngtd -no UTI sxs reported, UA mildly +, Ucx no growth -CXR with ? LL pna and CT a/p with possible bl opacities--however he was denying any sxs, 01/03 2V obtained and cannot rule out pna, pt notes he was previously having dry hacking cough; if pna would have been community acquired given sx timeline and CX Rfindings on admit -TTE 01/01 normal LVF, EF 65%, no significant valve abnormality, no pulm htn, valves not completely visualized -CAL 01/03 no vegetations -01/02 given severe headache Neuro consulted, not meningitis -01/03 has remained afebrile for days--dc vanc, cont cefepime to cover both skin infection and possible cap -monitor for fevers with de escalated abx (6) Headache Current Visit: Yes Status: Resolved Assessment and Plan: Right Occipital with radiation to right neck, improved, now resolved Right Occipital Neuralgia 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 chiari 1 malformation -PE without any findings, neuro exam unchanged, no meningitic symptoms or signs -MRI head no acute IC abnormality, low lying cerebellar tonsils may be related to minimal Chiari [address] head no acute AC abnormality -prn pain medication in place -neuro followed--Right Occipital Neuralgia benign and idiopathic, he may fu outpt with Dr Metzger as he may benefit in future from occipital nerve blockade and in regards to chiari malformation, requires no further work up or treatment -will have him fu outpt with dr Metzger - Time Spent with Patient Total time spent is greater than 50% in coordination of care (as documented) at patient's floor/unit and/or counseling patient: 25 - 35 minutes Plan of Care Discussed with: patient Internal Medicine: Result - Labs CBC & Chem 7: 01/03/18 06:49 01/04/18 06:13 Labs: BMP 01/04/18 06:13 Sodium 141 Potassium 3.4 L Chloride 107 Carbon Dioxide 25 BUN 6 Creatinine 0.75 Glucose 112 H Calcium 8.3 L Liver Function 01/04/18 Range/Units 06:13 Total Bilirubin 2.4 H (0.3-1.0) mg/dL AST 153 H (13-39) Units/L ALT 154 H (7-52) Units/L Alkaline Phosphatase 198 H (34-104) Units/L Albumin 3.2 L (3.5-5.7) g/dL - ABG Interpretation ABG results: PT/INR, D-dimer PT 13.1 Seconds (9.4-12.1) H 01/04/18 06:13 - Impressions Impressions Chest X-Ray 01/04/18 08:08 IMPRESSION: Increasing left basilar airspace opacity which may reflect atelectasis or pneumonia. There are new small bilateral pleural effusions as well. D/ / Yisel Escalante MD / Yisel Escalante MD Interpreting Provider: Yisel Escalante MD - VTE Documentation of Mechanical Device: Intermittent pneumatic compression device Consult Discharge Plan - Plan Referrals: NONE,PCP [Primary Care Provider] - (3) Pancreatitis Qualifiers: Pancreatitis type: unspecified pancreatitis type Acute pancreatitis complication: unspecified (5) Sepsis Qualifiers: Sepsis type: sepsis due to unspecified organism Qualified Code(s): A41.9 - Sepsis, unspecified organism (6) Headache Qualifiers: Headache type: unspecified Headache chronicity pattern: acute headache Intractability: not intractable Qualified Code(s): R51 - Headache
[2018-01-04] MEDS ORDERED: Aminoglycoside Consult 1 EACH MC ONE (13:35)
[2018-01-05] MEDS: Ipratropium/Albuterol Neb 3 ML IH SCH ×4 (03:42→21:45)
[2018-01-05] MEDS: Cefepime HCl 2,000 MG in Water for inj. (sterile) 20 ML 20 ML IVPB SCH ×2 (05:21→17:42)
[2018-01-05] MEDS: *HR* Heparin 5,000 UNIT/ML VIAL SQ SCH ×3 (05:46→22:45)
[2018-01-05 06:14] LABS: Alanine Aminotransferase 200 Units/L (7-52); Albumin 3.4 g/dL (3.5-5.7); Alkaline Phosphatase 240 Units/L (34-104); Aspartate Amino Transferase 145 Units/L (13-39); BUN/Creatinine Ratio 5 (6-26); Blood Urea Nitrogen 4 mg/dL (6-20); Calcium 8.7 mg/dL (8.6-10.3); Carbon Dioxide 28 mEq/L (23-29); Chloride 104 mEq/L (98-107); Globulin 3.3 g/dL (2.4-3.5); Glucose 104 mg/dL (70-105); Lipase 160 Units/L (11-82); Magnesium 1.6 mg/dL (1.6-2.6); Osmolality,Calculated 291 (280-300); Phosphorous 3.7 mg/dL (2.7-4.5); Potassium 3.2 mEq/L (3.5-5.1); Sodium 142 mEq/L (136-145); Total Protein 6.7 g/dL (6.4-8.9); eGFR For Non-African Americans > 60 (> 60)
[2018-01-05] MEDS: Aspirin 81 MG TAB.CHEW PO SCH (09:31)
[2018-01-05] MEDS: 0.9 % Sodium Chloride 1,000 ML IVC SCH ×2 (10:14→22:00)
--- NOTE | 2018-01-05 10:56 | Electrocardiograph Report ---
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
--- NOTE | 2018-01-05 11:40 | Internal Med Progress Note ---
Hospitalist Progress Note - Encounter Date of Encounter: 01/05/18 Time of Encounter: 09:00 - Subjective Interval History: no quinonez, fevers, chills or abd pain. Overall feeling improved. tolerated clear liquids well and will advance diet today and monitor - Exam Vitals: Temp Pulse Resp BP Pulse Ox 97.8 F 82 18 147/97 96 01/05/18 10:33 01/05/18 10:33 01/05/18 10:53 01/05/18 10:33 01/05/18 10:53 Exam: General: awake, alert, appears stated age, non toxic appearing Cardiovascular: reg rate and regular rhythm, normal S1 & S2, no rubs, murmurs or gallops. no lower extremity edema Lungs:Normal breath sounds, no wheezes, or crackles. Normal respiratory effort on room air Abdomen:Soft, non-tender, non-distended, + bowel sounds Neurological: AAOx3 Skin:Normal color, no rash, no pallor, no jaundice, center forehead abscess now scabbed and no surrounding erythema or edema - Assessment and Plan (1) Abscess of forehead Current Visit: Yes Status: Acute Assessment and Plan: resolved edema and erythema, healing site of I&D without drainage -s/p I& D in ED -initially on broad empiric abx for sepsis as below, abscess on head while significant on admit resolved quikly and was not initally thought to be cause of sepsis, however, with remainder of work up largely negative for infectious cause, have resolved this to be his primary infectious site -no meningitic symptoms throughout admit to suggest spread of head abscess (2) Elevated troponin Current Visit: Yes Status: Acute Assessment and Plan: Rule out ACS, may be type 2 in setting of sepsis Initially had intermittent chest pressure and sensation of sob/cough with deep inspiration No recent immobilization, travel or clot hx to suggest PE, no hypoxia -CXR with possible LLL infiltrate, though he has no sxs of pna -trops now down trending -echo normal, no signs endocarditis but valves incompletely visualized -cards ordered CAL 01/03 and confirmed no vegetations -cardiology followed, Dr Baltazar-- no acute interventions or further work up recommended -no speckling documented on echo to suggest infiltrative disease -repeat trop unchanged and at no time had symptoms -will have him fu out with Dr Baltazar upon dc (3) Pancreatitis Current Visit: Yes Status: Acute Assessment and Plan: As indicated by lipase elevation to 800s,overall down trending History of prior episode 1999 without etiology identified He has been asx throughout his entire presentation/admission -CT a/p limited by lack of contrast, pancreas appears normal, small amount of abd ascites adjacent to spleen -s/p fluid boluses, and high rate IVFs -npo initially now advancing diet as d/w Dr Morton -lipid panel without tg elevation, denies etoh use,gb without stones -MRCP abdomen by GI normal appearing pancreas, does not exclude clinical pancreatitis, no cholelithiasis or choledocholithiasis -d/w Dr Morton 01/03 and given asx may cont to advance diet--he will fu outpt in a couple weeks for further management--likely will need EUS (4) Transaminitis Current Visit: Yes Status: Acute Assessment and Plan: overall variable throughout admit with slight uptrend from admit, however T bili now down trending -liver on CT appears normal -hep panel negative -GI consulted as above --MRCP abdomen by GI normal appearing pancreas, does not exclude clinical pancreatitis, no cholelithiasis or choledocholithiasis -will check HIV while here, pending, no history of sxs to suggest EBV -d/w Dr Morton 01/03--given normal ercp no further intervention at this time, will have him fu in office for further outpt work up, likely EUS and I suspect autoimmunie work up (5) Sepsis Current Visit: Yes Status: Resolved Assessment and Plan: As evidenced by Fever 102.6, HR 108, Resolved Suspected infection, source suspected to be forehead abscess -in setting of pancreatitis, trop elevation, ruled out endocarditis, abscess forehead s/p i&D, possible pna on CXR, less likely given no sxs, but treating as such -broad spectrum abx vanc + cefepime initally -s/p fluid boluses and IVFs maintenance with stable bps -bl cxs ngtd -no UTI sxs reported, UA mildly +, Ucx no growth -CXR with ? LL pna and CT a/p with possible bl opacities--however he was denying any sxs, 01/03 2V obtained and cannot rule out pna, pt notes he was previously having dry hacking cough; if pna would have been community acquired given sx timeline and CX Rfindings on admit -TTE 01/01 normal LVF, EF 65%, no significant valve abnormality, no pulm htn, valves not completely visualized -CAL 01/03 no vegetations -01/02 given severe headache Neuro consulted, not meningitis -01/03 has remained afebrile for days--dc vanc, cont cefepime to cover both skin infection and possible cap -monitor for fevers with de escalated abx -will dc on doxy PO to complete course (6) Headache Current Visit: Yes Status: Resolved Assessment and Plan: Right Occipital with radiation to right neck, improved, now resolved Right Occipital Neuralgia 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 chiari 1 malformation -PE without any findings, neuro exam unchanged, no meningitic symptoms or signs -MRI head no acute IC abnormality, low lying cerebellar tonsils may be related to minimal Chiari [address] head no acute AC abnormality -prn pain medication in place -neuro followed--Right Occipital Neuralgia benign and idiopathic, he may fu outpt with Dr Metzger as he may benefit in future from occipital nerve blockade and in regards to chiari malformation, requires no further work up or treatment -will have him fu outpt with dr Metzger DVT Prophylaxis: heparin sq, but refusing, scds ordered - Time Spent with Patient Total time spent is greater than 50% in coordination of care (as documented) at patient's floor/unit and/or counseling patient: 25 - 35 minutes Plan of Care Discussed with: patient Internal Medicine: Result - Labs CBC & Chem 7: 01/03/18 06:49 01/05/18 05:42 Labs: BMP 01/05/18 05:42 Sodium 142 Potassium 3.2 L Chloride 104 Carbon Dioxide 28 BUN 4 L Creatinine 0.76 Glucose 104 Calcium 8.7 Cardiac Enzymes 01/05/18 Range/Units 05:42 Troponin I 0.07 H* (< 0.04) ng/mL Liver Function 01/05/18 Range/Units 05:42 Total Bilirubin 2.0 H (0.3-1.0) mg/dL AST 145 H (13-39) Units/L ALT 200 H (7-52) Units/L Alkaline Phosphatase 240 H (34-104) Units/L Albumin 3.4 L (3.5-5.7) g/dL - ABG Interpretation ABG results: PT/INR, D-dimer PT 13.1 Seconds (9.4-12.1) H 01/04/18 06:13 - VTE Documentation of Mechanical Device: Intermittent pneumatic compression device Consult Discharge Plan - Plan Referrals: NONE,PCP [Primary Care Provider] - (3) Pancreatitis Qualifiers: Pancreatitis type: unspecified pancreatitis type Acute pancreatitis complication: unspecified (5) Sepsis Qualifiers: Sepsis type: sepsis due to unspecified organism Qualified Code(s): A41.9 - Sepsis, unspecified organism (6) Headache Qualifiers: Headache type: unspecified Headache chronicity pattern: acute headache Intractability: not intractable Qualified Code(s): R51 - Headache
--- NOTE | 2018-01-05 12:29 | Electrocardiograph Report ---
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
--- NOTE | 2018-01-05 13:09 | Electrocardiograph Report ---
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
[2018-01-05] MEDS: Magnesium Oxide 400 MG TABLET PO SCH (16:04)
[2018-01-06] MEDS: Ipratropium/Albuterol Neb 3 ML IH SCH ×2 (03:44→10:40)
[2018-01-06 05:45] VITALS: BP 128/88
[2018-01-06 06:37] LABS: BUN/Creatinine Ratio 7 (6-26); Blood Urea Nitrogen 6 mg/dL (6-20); Calcium 8.8 mg/dL (8.6-10.3); Carbon Dioxide 29 mEq/L (23-29); Chloride 105 mEq/L (98-107); Glucose 103 mg/dL (70-105); Osmolality,Calculated 290 (280-300); Potassium 3.6 mEq/L (3.5-5.1); Sodium 141 mEq/L (136-145); eGFR For Non-African Americans > 60 (> 60)
[2018-01-06] MEDS: *HR* Heparin 5,000 UNIT/ML VIAL SQ SCH (06:52)
[2018-01-06] MEDS: Cefepime HCl 2,000 MG in Water for inj. (sterile) 20 ML 20 ML IVPB SCH (06:57)
--- NOTE | 2018-01-06 08:06 | Discharge Summary ---
- NOTES TO OUTPATIENT PROVIDER Notes to Outpatient Provider: sepsis likely related to forehead abscess and possible atypical pna. Now resolved. Incidentally found to pancreatitis, though clinically asx, transaminitis and asx, and trop elevation asx--all with negative work ups. He MUST see cards and gi outpt. Likely need EUS to eval pancreas further outpt, as mrcp negative. Also dx with occipital neuralgia and a mild chiari 1 malformation causing headaches. Follow up with neuro outpt as no further interventions needed. Would benefit from autoimmune work up. Date of Encounter: 01/06/18 Time of Encounter: 10:00 - Discharge Diagnosis (1) Abscess of forehead Priority: Primary Status: Acute Assessment and Plan: resolved edema and erythema, healing site of I&D without drainage -s/p I& D in ED -initially on broad empiric abx for sepsis as below, abscess on head while significant on admit resolved quickly and was not initially thought to be cause of sepsis, however, with remainder of work up largely negative for infectious cause, have resolved this to be his primary infectious site -possible atypical pna acquired in community attributing -no meningitic symptoms throughout admit to suggest spread of head abscess (2) Elevated troponin Priority: Secondary Status: Acute Assessment and Plan: Ruled out ACS, may be type 2 in setting of sepsis Initially had intermittent chest pressure and sensation of sob/cough with deep inspiration No recent immobilization, travel or clot hx to suggest PE, no hypoxia -CXR with possible LLL infiltrate, though he has no sxs of pna -trops remainded stable 0.07, peaked at 0.27 -echo normal, no signs endocarditis but valves incompletely visualized -cards ordered CAL 01/03 and confirmed no vegetations -cardiology followed, Dr Baltazar-- no acute interventions or further work up recommended -no speckling documented on echo to suggest infiltrative disease -repeat trop unchanged and at no time had symptoms -will have him fu out with Dr Baltazar upon dc (3) Pancreatitis Priority: Secondary Status: Acute Assessment and Plan: As indicated by lipase elevation to 800s,overall down trending History of prior episode 1999 without etiology identified He has been asx throughout his entire presentation/admission -CT a/p limited by lack of contrast, pancreas appears normal, small amount of abd ascites adjacent to spleen -s/p fluid boluses, and high rate IVFs -npo initially now regular diet -lipid panel without tg elevation, denies etoh use,gb without stones -MRCP abdomen by GI normal appearing pancreas, does not exclude clinical pancreatitis, no cholelithiasis or choledocholithiasis -d/w Dr Morton 01/03 and given asx may cont to advance diet--he will fu outpt in a couple weeks for further management--likely will need EUS Qualifiers: Chronicity: acute Pancreatitis type: unspecified pancreatitis type Acute pancreatitis complication: unspecified Qualified Code(s): K85.90 - Acute pancreatitis without necrosis or infection, unspecified (4) Transaminitis Priority: Secondary Status: Acute Assessment and Plan: overall variable throughout admit with slight uptrend from admit, however T bili now down trending -liver on CT appears normal -hep panel negative -GI consulted as above --MRCP abdomen by GI normal appearing pancreas, does not exclude clinical pancreatitis, no cholelithiasis or choledocholithiasis -HIV neg, no history of sxs to suggest EBV -d/w Dr Morton 01/03--given normal ercp no further intervention at this time, will have him fu in office for further outpt work up, likely EUS and autoimmune work up (5) Sepsis Priority: Primary Status: Resolved Assessment and Plan: As evidenced by Fever 102.6, HR 108, Resolved Suspected infection, source suspected to be forehead abscess -in setting of pancreatitis, trop elevation, ruled out endocarditis, abscess forehead s/p i&D, possible pna on CXR, less likely given no sxs, but treated as such -broad spectrum abx vanc + cefepime initally -s/p fluid boluses and IVFs maintenance with stable bps -bl cxs neg, ucx neg -CXR with ? LL pna and CT a/p with possible bl opacities--however he was denying any sxs, 01/03 2V obtained and cannot rule out pna, pt notes he was previously having dry hacking cough; if pna would have been community acquired likely atypical pna -TTE 01/01 normal LVF, EF 65%, no significant valve abnormality, no pulm htn, valves not completely visualized -CAL 01/03 no vegetations -01/02 given severe headache Neuro consulted, not meningitis -01/03 has remained afebrile for days--dc vanc, cont cefepime to cover both skin infection and possible cap -no fevers with de escalated abx -will dc on doxy PO to complete course Qualifiers: Sepsis type: sepsis due to unspecified organism Qualified Code(s): A41.9 - Sepsis, unspecified organism (6) Headache Priority: Secondary Status: Resolved Assessment and Plan: Right Occipital with radiation to right neck, improved, now resolved Right Occipital Neuralgia 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 chiari 1 malformation -PE without any findings, neuro exam unchanged, no meningitic symptoms or signs -MRI head no acute IC abnormality, low lying cerebellar tonsils may be related to minimal Chiari [address] head no acute AC abnormality -prn pain medication in place -neuro followed--Right Occipital Neuralgia benign and idiopathic, he may fu outpt with Dr Metzger as he may benefit in future from occipital nerve blockade and in regards to chiari malformation, requires no further work up or treatment -will have him fu outpt with dr Metzger Qualifiers: Headache type: unspecified Headache chronicity pattern: acute headache Intractability: not intractable Qualified Code(s): R51 - Headache Hospital course: Mr. Lovelace is a 37 year old male who presented with sepsis believed to be related to abscess on forehead for which he underwent i&d and possible atypical pna based on prior sx report and cxr findngs. Work up to identify sources of infection as above. Sepsis resolved with broad abx. He incidentally was found to have elevated lfts and lipase without any symptoms. GI followed, MRCP negative and treatment as detailed above. Also incidentally found to have elevated trop from baseline without any sxs. Cards followed with work up and treatment above. He reported hx of right sided occipital eadaches, neuro evaluated him with addl imaging and dx with occipatal headache and mild chiari 1 malformation as detailed above. He requires outpt fu with specialty teams and with pcp. Full details of admit above. - Time Spent with Patient Total time spent providing and/or coordinating discharge services: - Discharge Medications Prescriptions: Doxycycline 100 mg PO BID 4 Days #8 capsule Home Medications: Doxycycline 100 mg PO BID 4 Days #8 capsule 01/06/18 [Rx] Allergies/Adverse Reactions: 3 Allergy/AdvReac Type Severity Reaction Status Date / Time No Known Allergies Allergy Verified 12/31/17 17:52 Date of admission: 01/01/18 11:54 Primary care physician: PCP NONE Consults: 01/01/18 12:28 Consult to Gastroenterology [CONS] Routine Consulting Provider: [facility] Reason for Consult: recurrent pancreatitis unknown etiology with worsening lipase, elevated alk phos and transaminases Call Completed: No 01/01/18 12:29 Consult to Cardiology [CONS] Routine Comment: Consulting Provider: [facility] Reason for Consult: elevated troponin levels and chest pressure w/ sob in setting of sepsis of uk etiology, echo pending to eval for endocarditis Call Completed: No 01/02/18 11:58 Consult to Neurology [CONS] Routine Consulting Provider: [facility] Reason for Consult: pounding right sided occipatal headache vs neck muscle etiology, please eval for further work up and treatment recs. thank you Call Completed: Yes Discharging clinician: Stella Mujica - Constitutional Vitals: Temp Pulse Resp BP Pulse Ox 98.3 F 86 13 128/88 96 01/06/18 05:44 01/06/18 05:44 01/06/18 05:44 01/06/18 05:44 01/06/18 05:44 General appearance: Present: cooperative, mild distress, A&O X 3, answers questions appropriately Exam: General: awake, alert, appears stated age, nad Cardiovascular: reg rate and regular rhythm, normal S1 & S2, no rubs, murmurs or gallops. no lower extremity edema Lungs:Normal breath sounds, no wheezes, or crackles. Normal respiratory effort on room air Abdomen:Soft, non-tender, non-distended, + bowel sounds, no HSM Neurological: AAOx3 Skin:Normal color, no rash, no pallor, no jaundice, center forehead abscess now scabbed and no surrounding erythema or edema - Patient Status Disposition: Home, Self-Care Condition: Good Functional capacity at discharge: independent ambulation Overall status at discharge: patient is back to baseline - Discharge Instructions Follow Up With: NONE,PCP [Primary Care Provider] - Derek Baltazar MD [Partnered Physician] - Daryl Metzger MD [Partnered Physician] - Sofia Morton MD [Partnered Physician] - - VTE Documentation of Mechanical Device: Intermittent pneumatic compression device
[2018-01-06] MEDS: 0.9 % Sodium Chloride 1,000 ML IVC SCH (08:11)
[2018-01-06] MEDS: Aspirin 81 MG TAB.CHEW PO SCH (08:13)
[2018-01-06] MEDS: Magnesium Oxide 400 MG TABLET PO SCH (08:13)
== END 2018-01-06 13:36 | disposition home or self-care (01) | DRG 871 ==
LOC: EMEROOARM 17:09 → 3ANU 17:09 → SUATTDRO 20:59 → 3ANU 22:04
PROVIDERS: ADMIT Internal Medicine; ATTEND Internal Medicine